=== PATIENT | female | born 1990 | race Caucasian/White ===

== ENCOUNTER 2018-08-21 15:07 | Inpatient (IN) | payer OTHER, SELFPAY ==
[2018-08-21] MEDS ORDERED: ONDANSETRON 4 MG/2 ML VIAL ONE (15:44)
[2018-08-21] MEDS ORDERED: NA CHLORIDE 0.9% 1,000 ML ONE ×2 (15:44→16:45)
--- NOTE | 2018-08-21 15:48 | RAD REPORT ---
EXAM DESCRIPTION: US - Renal Ultrasound-Complete - 08/21/2018 3:43 pm CLINICAL HISTORY: . Urinary tract infection COMPARISON: None. FINDINGS: The right kidney measures 11 cm with a normal echotexture. The left kidney measures 11 cm with a normal echotexture. Hydronephrosis is not seen. IMPRESSION: Unremarkable renal ultrasound.
[2018-08-21 15:56] LABS: Urine Blood 2+ (NEG); Urine Glucose NEGATIVE (NEG); Urine Protein 2+ (NEG); Urine pH 5.5 (5.0-7.0)
[2018-08-21 16:05] LABS: Absolute Monocytes 2.8 K/uL (0.1-1.3); Absolute Neutrophil 19.8 K/uL (1.8-8.0); Basophils % 0.2 % (0-1.3); Eosinophils % 0.1 % (0-4.4); Hematocrit 37.3 % (36.0-45.0); Lymphocytes % 4.3 % (15.3-44.8); MCH 30.9 pg (27.0-35.0); MCV 89.5 fL (80-100); MPV 9.9 fL (7.6-11.3); Monocytes % 11.9 % (3.3-12.3); RBC Red Blood Cell Count 4.17 M/uL (3.86-4.86)
[2018-08-21 16:06] LABS: Urine Bacteria 20-50 /HPF (<20)
[2018-08-21 16:07] LABS: Urine Culture Reflex Order NOT NEEDED
[2018-08-21 16:42] LABS: Potassium 3.5 mmol/L (3.5-5.1)
[2018-08-21] MEDS ORDERED: CEFTRIAXONE/SWI 1gm 1 GM/10 ML SYR ONE (16:45)
[2018-08-21] MEDS ORDERED: ACETAMINOPHEN 500 MG TAB ONE (16:57)
--- NOTE | 2018-08-21 17:16 | RAD REPORT ---
EXAM DESCRIPTION: CT - Abdomen Pelvis W Contrast - 08/21/2018 5:04 pm CLINICAL HISTORY: Abdominal pain, flank pain, fever COMPARISON: None. TECHNIQUE: Biphasic, helical CT imaging of the abdomen and pelvis was performed following 100 ml non -ionic IV contrast. No oral contrast administered. All CT scans are performed using dose optimization technique as appropriate and may include automated exposure control or mA/KV adjustment according to patient size. FINDINGS: No suspicious findings in the lung bases. The liver, spleen, and pancreas show no suspicious findings. Gallbladder and biliary tree are also wi thout suspicious finding. Heterogeneous diminished attenuation seen throughout much of the right kidney in a pattern typical fo r pyelonephritis. No abscess or emergent complicating factor. A small 10 mm cyst is present medial ri ght kidney. A 2.3 cm cyst is present upper pole left kidney. No left-sided pyelonephritis. Mild dilat ation of the proximal right collecting system. Wall of the ureter is slightly thickened and shaggy. U rinary bladder is fully contracted limiting assessment of any cystitis component. The 2.5 centimeter right ovarian cyst is present. Small follicles or cysts seen in the left ovary. No suspicious uterine finding. No dilated bowel loops or bowel wall thickening. Appendix is normal. No free air, free fluid or infla mmatory stranding. No hernia, mass or bulky lymphadenopathy. The urinary bladder is without signific ant finding. No adrenal abnormality. No suspicious bony findings. IMPRESSION: Moderate right-sided pyelonephritis without abscess or surgically emergent component. Suspected right-side proximal ureteritis. Urinary bladder is too contracted to allow assessment of a ny concurrent cystitis.
[2018-08-21 17:29] LABS: Blood Morphology Comment NOT SEEN (NOT SEEN); Platelet Estimate ADEQ
[2018-08-21 17:31] LABS: Urine White Blood Cell Casts OK
--- NOTE | 2018-08-21 17:42 | EDPHYS ---
Physician Documentation [facility] Name: Elizabeth Blackwell Age: 28 yrs Sex: Female : 1990 Arrival Date: 08/21/2018 Time: 15:12 Bed 18 Private MD: David Lawrence ED Physician Vic Garcia HPI: 08/21 15:40 This 28 yrs old Female presents to ER via Ambulatory with complaints of kb Vomiting, Fever. 15:40 The patient presents to the emergency department with vomiting. Onset: The kb symptoms/episode began/occurred 4 day(s) ago. Possible causes: unknown. The symptoms are aggravated by nothing. The symptoms are alleviated by nothing. Associated signs and symptoms: Pertinent positives: fever, nausea, vomiting, flank pain. Severity of symptoms: At their worst the symptoms were moderate in the emergency department the symptoms are unchanged. The patient has not experienced similar symptoms in the past. Pt reports she started having fever and back pain on Saturday. Went to urgent care on Saturday and was prescribed Bactrim for UTI and promethazine for nausea, but has been unable to keep it down. Reports unable to tolerate anything by mouth since Saturday due to vomiting. Reports bilateral flank pain, worse on right, fever (subjective) and vomiting. . 15:40 The patient has been recently seen at an urgent care, this week, for similar kb complaints, labs were performed, was given a prescription for antibiotics, was given a prescription for an antiemetic. 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 - Social history:: Smoking status: Patient/guardian denies using tobacco. - Ebola Screening: : Patient denies exposure to infectious person Patient denies travel to an Ebola-affected area in the 21 days before illness onset. ROS: 15:39 Cardiovascular: Negative for chest pain, palpitations, and edema, Respiratory: Negative kb for shortness of breath, cough, wheezing, and pleuritic chest pain, MS/Extremity: Negative for injury and deformity, Skin: Negative for injury, rash, and discoloration, Neuro: Negative for headache, weakness, numbness, tingling, and seizure. 15:39 Constitutional: Positive for fever, Negative for body aches, chills, fatigue, malaise, poor PO intake, weight loss. 15:39 Abdomen/GI: Positive for nausea and vomiting, Negative for abdominal pain, diarrhea, constipation, abdominal cramps. 15:39 : Positive for flank pain. Exam: 15:39 Constitutional: This is a well developed, well nourished patient who is awake, alert, kb and in no acute distress. Head/Face: Normocephalic, atraumatic. Chest/axilla: Normal chest wall appearance and motion. Nontender with no deformity. No lesions are appreciated. Cardiovascular: Regular rate and rhythm with a normal S1 and S2. No gallops, murmurs, or rubs. Normal PMI, no JVD. No pulse deficits. Respiratory: Lungs have equal breath sounds bilaterally, clear to auscultation and percussion. No rales, rhonchi or wheezes noted. No increased work of breathing, no retractions or nasal flaring. Abdomen/GI: Soft, non-tender, with normal bowel sounds. No distension or tympany. No guarding or rebound. No evidence of tenderness throughout. Skin: Warm, dry with normal turgor. Normal color with no rashes, no lesions, and no evidence of cellulitis. MS/ Extremity: Pulses equal, no cyanosis. Neurovascular intact. Full, normal range of motion. Neuro: Awake and alert, GCS 15, oriented to person, place, time, and situation. Cranial nerves II-XII grossly intact. Motor strength 5/5 in all extremities. Sensory grossly intact. Cerebellar exam normal. Normal gait. 15:39 Back: CVA tenderness, that is mild, is noted bilaterally. Vital Signs: 15:32 BP 177 / 85; Pulse 120; Resp 17; Temp 100.1(O); Pulse Ox 98% ; Weight 97.52 kg; Height ss 5 ft. 7 in. (170.18 cm); Pain 10/10; 16:36 BP 117 / 56; Pulse 94; Resp 18; Pulse Ox 99% on R/A; mg2 17:40 BP 129 / 87; Resp 18; Pulse Ox 100% on R/A; mg2 18:17 BP 127 / 86; Pulse 90; Resp 18; Temp 99.4(O); Pulse Ox 100% ; mg2 19:07 BP 122 / 72; Pulse 80; Resp 18 S; Temp 99.4(O); Pulse Ox 98% on R/A; cc3 20:00 BP 119 / 75; Pulse 82; Resp 19 S; Pulse Ox 99% on R/A; cc3 15:32 Body Mass Index 33.67 (97.52 kg, 170.18 cm) ss MDM: 15:19 Patient medically screened. kb 15:40 Data reviewed: vital signs, nurses notes. Data interpreted: Pulse oximetry: on room air kb is 98 %. Interpretation: normal. 17:40 Counseling: I had a detailed discussion with the patient and/or guardian regarding: the kb historical points, exam findings, and any diagnostic results supporting the discharge/admit diagnosis, lab results, radiology results, the need for further work-up and treatment in the hospital. Physician consultation: Sohan Spann DO was contacted at 17:40, regarding admission, to the medical/surgical unit. patient's condition, and will see patient in ED, in the emergency department to see patient at 17:40. 08/21 15:28 Order name: CBC with Diff; Complete Time: 17:32 kb 08/21 15:28 Order name: Basic Metabolic Panel; Complete Time: 16:49 kb 08/21 15:28 Order name: Urine Microscopic Only; Complete Time: 16:07 kb 08/21 15:33 Order name: Urine Dipstick--Ancillary (enter results); Complete Time: 15:57 mt 08/21 15:33 Order name: Urine --Ancillary (enter results); Complete Time: 15:57 mt 08/21 16:16 Order name: CBC Smear Scan; Complete Time: 17:32 EDMS 08/21 15:28 Order name: US Rp Exam Complete; Complete Time: 15:52 kb 08/21 16:25 Order name: CT Abd/Pelvis - W/Contrast; Complete Time: 17:22 kb 08/21 17:30 Order name: Blood Culture Adult (2) kb 08/21 17:30 Order name: Lactate kb 08/21 17:30 Order name: Procalcitonin kb 08/21 20:37 Order name: Blood Culture EDMS 08/21 15:28 Order name: Urine Test (obtain specimen); Complete Time: 15:29 kb 08/21 15:28 Order name: Urine Dipstick-Ancillary (obtain specimen); Complete Time: 15:29 kb Administered Medications: 15:55 Drug: Zofran 4 mg Route: IVP; Site: right antecubital; mg2 19:00 Follow up: Response: No adverse reaction; Nausea is decreased cc3 15:56 Drug: NS 0.9% 1000 ml Route: IV; Rate: 1000 ml; Site: right antecubital; mg2 19:00 Follow up: Response: No adverse reaction; IV Status: Completed infusion; IV Intake: cc3 1000ml 16:40 Drug: Rocephin 1 grams Route: IV; Rate: calculated rate; Site: right antecubital; mg2 19:00 Follow up: Response: No adverse reaction; IV Status: Completed infusion cc3 16:53 Drug: Tylenol 1000 mg Route: PO; mg2 19:05 Follow up: Response: No adverse reaction; Temperature is decreased cc3 17:21 Drug: NS 0.9% 1000 ml Route: IV; Rate: 1000 ml; Site: right antecubital; mg2 19:00 Follow up: Response: No adverse reaction; IV Status: Completed infusion; IV Intake: cc3 1000ml Disposition: 08/21/18 17:41 Hospitalization ordered by Sohan Spann for Observation. Preliminary diagnosis is Acute tubulo-interstitial nephritis - failed outpatient therapy. - Bed requested for Telemetry/MedSurg (observation). - Status is Observation. cc3 - Condition is Stable. - Problem is new. - Symptoms are unchanged. UTI on Admission? Yes Addendum: 08/23/2018 19:03 Co-signature as Attending Physician, Vic Garcia MD. r n Signatures: Dispatcher [employer] [facility] Miracle Marquez, CASE AIDE-C CASE AIDE-Kasia Torres RN RN kl Nieto, Roman, MD MD rn Smirch, Shelby, RN RN Raji Nichole RN RN [facility] Vianney Freire cc3 Corrections: (The following items were deleted from the chart) 08/21 19:38 17:41 Hospitalization Ordered by Sohan Spann DO for Observation. Preliminary kl diagnosis is Acute tubulo-interstitial nephritis - failed outpatient therapy. Bed requested for Telemetry/MedSurg (observation). Status is Observation. Condition is Stable. Problem is new. Symptoms are unchanged. UTI on Admission? Yes. kb 19:43 19:38 08/21/2018 17:41 Hospitalization Ordered by Sohan Spann DO for Observation. kl Preliminary diagnosis is Acute tubulo-interstitial nephritis - failed outpatient therapy. Bed requested for Telemetry/MedSurg (observation). Status is Observation. Condition is Stable. Problem is new. Symptoms are unchanged. UTI on Admission? Yes. 20:48 19:43 08/21/2018 17:41 Hospitalization Ordered by Sohan Spann DO for Observation. cc3 Preliminary diagnosis is Acute tubulo-interstitial nephritis - failed outpatient therapy. Bed requested for Telemetry/MedSurg (observation). Status is Observation. Condition is Stable. Problem is new. Symptoms are unchanged. UTI on Admission? Yes. jose
--- NOTE | 2018-08-21 17:42 | ER ---
Nurse's Notes [facility] Name: Elizabeth Blackwell Age: 28 yrs Sex: Female : 1990 Arrival Date: 08/21/2018 Time: 15:12 Bed 18 Private MD: David Lawrence Diagnosis: Acute tubulo-interstitial nephritis-failed outpatient therapy Presentation: 08/21 15:27 Presenting complaint: Patient states: N/V, fever and back pain that began 4 days ago. ss Seen in urgent care and given prescriptions for promethazine and Bactrim. Patient reports that symptoms have not improved and she has not been able to hold down her medications. Transition of care: patient was not received from another setting of care. Onset of symptoms was August 18, 2018. Risk Assessment: Do you want to hurt yourself or someone else? Patient reports no desire to harm self or others. Initial Sepsis Screen: Does the patient meet any 2 criteria? HR > 90 bpm. Does the patient have a suspected source of infection? Yes: Dysuria/Frequency/Urgency/UTI. Care prior to arrival: None. 15:27 Method Of Arrival: Ambulatory ss 15:27 Acuity: ARAM 3 ss Triage Assessment: 19:15 General: Appears in no apparent distress. comfortable. GI: Reports nausea, vomiting, cc3 since 4 days. 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 - Social history:: Smoking status: Patient/guardian denies using tobacco. - Ebola Screening: : Patient denies exposure to infectious person Patient denies travel to an Ebola-affected area in the 21 days before illness onset. Screenin:21 Abuse screen: Denies threats or abuse. Denies injuries from another. Nutritional mg2 screening: No deficits noted. Tuberculosis screening: No symptoms or risk factors identified. Fall Risk IV access (20 points). Assessment: 16:16 General: Appears in no apparent distress. comfortable, Behavior is calm, cooperative. mg2 Pain: Complains of pain in right flank Pain does not radiate. Pain currently is 8 out of 10 on a pain scale. Quality of pain is described as aching, Pain began gradually, Is intermittent. Neuro: Level of Consciousness is awake, alert, obeys commands, Oriented to person, place, time, situation. Cardiovascular: Capillary refill < 3 seconds Patient's skin is warm and dry. Respiratory: Airway is patent Respiratory effort is even, unlabored, Respiratory pattern is regular, symmetrical. GI: Abdomen is flat. : Urine is cloudy. EENT: No signs and/or symptoms were reported regarding the EENT system. Derm: Skin is intact, is healthy with good turgor, Skin is pink, warm \T\ dry. normal. Musculoskeletal: No signs and/or symptoms reported regarding the musculoskeletal system. 16:36 Reassessment: Patient appears in no apparent distress at this time. Patient and/or mg2 family updated on plan of care and expected duration. Pain level reassessed. Patient is alert, oriented x 3, equal unlabored respirations, skin warm/dry/pink. 19:10 Reassessment: Patient appears in no apparent distress at this time. Patient and/or cc3 family updated on plan of care and expected duration. Pain level reassessed. Patient is alert, oriented x 3, equal unlabored respirations, skin warm/dry/pink. Received from LINN Alegria as a case of pyelonephritis for admission waiting for bed availability. Patient with IV cannula gauge 20 at the right ACV saline locked. 20:00 Reassessment: Patient appears in no apparent distress at this time. Patient and/or cc3 family updated on plan of care and expected duration. Pain level reassessed. Patient is alert, oriented x 3, equal unlabored respirations, skin warm/dry/pink. Room available in 424, called report to LINN Lopez. 20:25 Reassessment: Patient left ER vitally stable by wheelchair for admission escorted by ED cc3 [facility]. Vital Signs: 15:32 BP 177 / 85; Pulse 120; Resp 17; Temp 100.1(O); Pulse Ox 98% ; Weight 97.52 kg; Height ss 5 ft. 7 in. (170.18 cm); Pain 10/10; 16:36 BP 117 / 56; Pulse 94; Resp 18; Pulse Ox 99% on R/A; mg2 17:40 BP 129 / 87; Resp 18; Pulse Ox 100% on R/A; mg2 18:17 BP 127 / 86; Pulse 90; Resp 18; Temp 99.4(O); Pulse Ox 100% ; mg2 19:07 BP 122 / 72; Pulse 80; Resp 18 S; Temp 99.4(O); Pulse Ox 98% on R/A; cc3 20:00 BP 119 / 75; Pulse 82; Resp 19 S; Pulse Ox 99% on R/A; cc3 15:32 Body Mass Index 33.67 (97.52 kg, 170.18 cm) ED Course: 15:12 Patient arrived in ED. mr 15:13 David Lawrence MD is Private Physician. mr 15:19 David Mccarthy PA is PHCP. jr8 15:19 Vic Garcia MD is Attending Physician. jr8 15:19 PHCP role handed off by David Mccarthy PA kb 15:19 Miracle Marquez FNP-C is PHCP. kb 15:19 Raji Nichole, RN is Primary Nurse. mg2 15:30 Triage completed. ss 15:32 Arm band placed on right wrist. ss 15:44 US Rp Exam Complete In Process Unspecified. EDMS 16:16 No provider procedures requiring assistance completed. Inserted saline lock: 20 gauge mg2 in right antecubital area, using aseptic technique. Blood collected. 16:33 Radiology exam delayed due to lab results not completed at this time. (BUN/Creatinine). sj 16:[address] sj 16:59 CT completed. Patient tolerated procedure well. Patient moved back from CT. sj 17:04 CT Abd/Pelvis - W/Contrast In Process Unspecified. EDMS 17:41 Sohan Spann DO is Hospitalizing Provider. kb 19:15 Patient has correct armband on for positive identification. Bed in low position. Call cc3 light in reach. Pulse ox on. NIBP on. 20:00 Patient admitted, IV remains in place. cc3 Administered Medications: 15:55 Drug: Zofran 4 mg Route: IVP; Site: right antecubital; mg2 19:00 Follow up: Response: No adverse reaction; Nausea is decreased cc3 15:56 Drug: NS 0.9% 1000 ml Route: IV; Rate: 1000 ml; Site: right antecubital; mg2 19:00 Follow up: Response: No adverse reaction; IV Status: Completed infusion; IV Intake: cc3 1000ml 16:40 Drug: Rocephin 1 grams Route: IV; Rate: calculated rate; Site: right antecubital; mg2 19:00 Follow up: Response: No adverse reaction; IV Status: Completed infusion cc3 16:53 Drug: Tylenol 1000 mg Route: PO; mg2 19:05 Follow up: Response: No adverse reaction; Temperature is decreased cc3 17:21 Drug: NS 0.9% 1000 ml Route: IV; Rate: 1000 ml; Site: right antecubital; mg2 19:00 Follow up: Response: No adverse reaction; IV Status: Completed infusion; IV Intake: cc3 1000ml Intake: 19:00 IV: 1000ml; Total: 1000ml. cc3 19:00 IV: 1000ml; Total: 2000ml. cc3 Outcome: 17:41 Decision to Hospitalize by Provider. kb 20:00 Admitted to Tele accompanied by tech, via wheelchair, room 424, with chart, Report cc3 called to LINN Lopez 20:00 Condition: stable 20:00 Instructed on the need for admit. 20:48 Patient left the ED. cc3 Signatures: Dispatcher [employer] EDMS Miracle Marquez, BONDING MACHINE OPERATOR-C BONDING MACHINE OPERATOR-Ckb Allyn Temple Susan sj Smirch, Shelby, RN RN David Mccarthy PA PA jr8 Gardose, Michele, RN RN [facility] [place] [place] Vianney Freire cc3
[2018-08-21] MEDS ORDERED: IBUPROFEN 100 MG/5 ML UCUP PO PRN (17:50)
[2018-08-21] MEDS: NA CHLORIDE 0.9% 1,000 ML IV SCH ×2 (18:00→22:08)
--- NOTE | 2018-08-21 18:18 | P.HP ---
Certification for Inpatient Patient admitted to: Inpatient With expected LOS: >2 Midnights Patient will require the following post-hospital care: None Practitioner: I am a practitioner with admitting privileges, knowledge of patient current condition, hospital course, and medical plan of care. Services: Services provided to patient in accordance with Admission requirements found in Title 42 Section 412.3 of the Code of Federal Regulations Patient History Date of Service: 08/21/18 Primary Care Provider: Dr. Lawrence Reason for admission: Failed outpatient therapy History of Present Illness: 28-year-old female presented to the hospital after failed therapy for UTI. Patient reported on Saturday having back pain and chills. The following day she went a urgent care was found to have a UTI. She was sent home with Bactrim and Phenergan. Patient was having nausea, vomiting, chills and fever. She also reported some lower abdominal pain and back pain along with right flank pain. The nausea persisted. She came to the ER for further evaluation. In the ER she was evaluated. White count elevated at 23.7. Urinalysis showed bacteria. Renal ultrasound unremarkable. CT scan showed moderate right pyelonephritis with proximal ureteritis. Due to failed outpatient therapy the patient was admitted for treatment. When I saw the patient ER, pain and nausea had improved. Patient has no past medical problems. Patient with history of 1 sexual partner. She has had gonorrhea and herpes in the distant past. She is currently single and has had 2 prior C-sections. She recently started control medication about a week ago. She had to stop this due to her infection. She admits drinking alcohol regularly. Patient reports history of Pap smear within the last 3 months which was unremarkable. Allergies No Known Allergies Allergy (Verified 11/26/13 05:58) Home medications list reviewed: Yes Home Medications: Pnv Comb.[id number]/Iron Bisgly/FA [ Capsule] 1 each PO DAILY 11/26/13 - Past Medical/Surgical History Diabetic: No Past Medical History: Patient denies medical history -: History of gonorrhea and general herpes -: x2 Psychosocial/ Personal History: The patient is single. She has 2 children. 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 - Family History Family History: Reviewed- Non-Contributory - Social History Smoking Status: Never smoker Alcohol use: Yes CD- Drugs: No Caffeine use: Yes Place of Residence: Home Review of Systems General: Fever, Chills, Weakness, As per HPI Eyes: Unremarkable ENT: Unremarkable Respiratory: Unremarkable Cardiovascular: Unremarkable Gastrointestinal: Nausea, Vomiting, Abdominal Pain, As per HPI Genitourinary: Dysuria, Frequency, As per HPI Musculoskeletal: Back Pain, As per HPI Integumentary: Unremarkable Neurological: Unremarkable Lymphatics: Unremarkable Physical Examination - Physical Exam General: Alert, In no apparent distress, Oriented x3, Cooperative HEENT: Atraumatic, Normocephalic, PERRLA, Other (Dry mucous membranes) Neck: Supple, No Thyromegaly Respiratory: Clear to auscultation bilaterally, Normal air movement Cardiovascular: Normal pulses, Regular rate/rhythm Gastrointestinal: Normal bowel sounds, Soft and benign, Non-distended, No masses , No rebound, No guarding, Tenderness (Mild tenderness to the right flank) Musculoskeletal: No erythema, No tenderness, No warmth Integumentary: No tenderness/swelling, No erythema, No warmth, No cyanosis Neurological: Normal speech, Normal strength at 5/5 x4 extr, Normal tone, Normal affect Lymphatics: No axilla or inguinal lymphadenopathy - Studies Laboratory Data (last 24 hrs) 08/21/18 16:22: Sodium 135 L, Potassium 3.5, BUN 9, Creatinine 0.90, Glucose 107 H 08/21/18 15:35: WBC 23.7 H*, Hgb 12.9, Hct 37.3, Plt Count 309 Assessment and Plan - Plan Impression: Right flank pain secondary to right pyelonephritis and proximal ureteritis with noted failed outpatient therapy for UTI Nausea and vomiting and fever secondary to pyelonephritis Hyponatremia likely from dehydration Alcohol use Plan: Right flank pain secondary to right pyelonephritis and proximal ureteritis with noted failed outpatient therapy for UTI: Blood and urine culture obtained. Will continue with Rocephin IV. Will provide medication for pain, fever and nausea and vomiting. Will continue IV fluids. Will evaluate for gonorrhea and chlamydia due to her past distant sexual history. Will reassess tomorrow. Will hold her control medication as this was recently started but stopped earlier in the week due to her UTI. Nausea and vomiting and fever secondary to pyelonephritis: Will provide medication for nausea and vomiting. Will provide medication for fever if required. Continue with IV fluids. Hyponatremia likely from dehydration: Continue with IV fluids. Will monitor and adjust appropriately. Alcohol use: Patient with history of alcohol use on a regular basis. Will provide alcohol cessation education. Discharge Plan: Home Plan to discharge in: 72 Hours - Advance Directives Does patient have a Living Will: No Does patient have a Durable POA for Healthcare: No - Code Status/Comfort Care Code Status Assessed: Yes (Patient full code.) Time Spent Managing Pts Care (In Minutes): 55
[2018-08-21] MEDS: ENOXAPARIN 40 MG/0.4 ML SQ SCH (21:58)
[2018-08-21] MEDS: HYDROCODONE/APAP 7.5/325 MG TAB PO PRN (21:58)
[2018-08-21] MEDS: ONDANSETRON 4 MG/2 ML VIAL IV PRN (22:05)
[2018-08-21] MEDS: ACETAMINOPHEN 500 MG TAB PO PRN (22:35)
[2018-08-22 02:59] VITALS: BMI 33.6
[2018-08-22] MEDS: HYDROCODONE/APAP 7.5/325 MG TAB PO PRN ×4 (03:44→22:17)
[2018-08-22 05:21] LABS: Absolute Lymphocytes (CBC) 1.4 K/uL (0.7-4.9); Absolute Monocytes 2.3 K/uL (0.1-1.3); Absolute Neutrophil 12.2 K/uL (1.8-8.0); Basophils % 0.2 % (0-1.3); Eosinophils % 0.1 % (0-4.4); Hematocrit 32.5 % (36.0-45.0); Lymphocytes % 8.6 % (15.3-44.8); MCH 30.6 pg (27.0-35.0); MCV 90.1 fL (80-100); MPV 9.5 fL (7.6-11.3); Monocytes % 14.3 % (3.3-12.3); RBC Red Blood Cell Count 3.61 M/uL (3.86-4.86)
[2018-08-22 05:35] LABS: Magnesium 2.5 mg/dL (1.8-2.4); Potassium 3.8 mmol/L (3.5-5.1)
[2018-08-22] MEDS: NA CHLORIDE 0.9% 1,000 ML IV SCH ×3 (06:26→18:51)
[2018-08-22] MEDS: TRAMADOL HCL 50 MG TAB PO PRN ×3 (07:52→20:27)
[2018-08-22] MEDS ORDERED: INFLUENZA VACCINE (for 3y+) 0.5 ML DOSE IMVAC ONE (08:00)
[2018-08-22] MEDS: ONDANSETRON 4 MG/2 ML VIAL IV PRN ×3 (08:56→20:27)
[2018-08-22] MEDS: ENOXAPARIN 40 MG/0.4 ML SQ SCH (08:58)
[2018-08-22] MEDS: CEFTRIAXONE/SWI 1gm 1 GM/10 ML SYR IVP SCH (08:59)
[2018-08-22] MEDS: ACETAMINOPHEN 500 MG TAB PO PRN (09:08)
--- NOTE | 2018-08-22 09:34 | P.PN ---
Subjective Date of Service: 08/22/18 Primary Care Provider: Dr. Lawrence Chief Complaint: Failed outpatient therapy Subjective: Improving (Less pain noted. No nausea vomiting.) Physical Examination - Vital Signs Temperature: 98.2 F Blood Pressure: 122/58 Pulse: 89 Respirations: 18 Pulse Ox (%): 100 - Physical Exam General: Alert, In no apparent distress, Oriented x3, Cooperative HEENT: Atraumatic, Mucous membr. moist/pink Neck: Supple Respiratory: Clear to auscultation bilaterally, Normal air movement Cardiovascular: Normal pulses, Regular rate/rhythm Gastrointestinal: Normal bowel sounds, Soft and benign, Non-distended, No masses , No rebound, No guarding, Tenderness (Significantly less pain to the flank region.) Musculoskeletal: No erythema, No tenderness, No warmth Integumentary: No tenderness/swelling, No erythema, No warmth, No cyanosis Neurological: Normal speech, Normal strength at 5/5 x4 extr, Normal tone, Normal affect - Studies Laboratory Data (last 24 hrs) 08/21/18 16:22: Sodium 135 L, Potassium 3.5, BUN 9, Creatinine 0.90, Glucose 107 H 08/21/18 15:35: WBC 23.7 H*, Hgb 12.9, Hct 37.3, Plt Count 309 Medications List Reviewed: Yes Assessment & Plan Discharge Plan: Home Plan to discharge in: 24 Hours Physician Review Additional Text: Impression: Right flank pain secondary to right pyelonephritis and proximal ureteritis with noted failed outpatient therapy for UTI Nausea and vomiting and fever secondary to pyelonephritis Hyponatremia likely from dehydration Alcohol use Anemia Obesity, BMI 33.7 Plan: Right flank pain secondary to right pyelonephritis and proximal ureteritis with noted failed outpatient therapy for UTI: Blood and urine culture obtained, awaiting results. Will continue with Rocephin IV. Patient improving. Continue with medication for pain and nausea as needed. Continue IV fluids. Gonorrhea and chlamydia also obtained. Encourage ambulation. Anticipate discharge as early as tomorrow. Nausea and vomiting and fever secondary to pyelonephritis: This has improved. Will provide medication for nausea and vomiting. Will provide medication for fever if required. Continue with IV fluids. Hyponatremia likely from dehydration: This has improved. Continue with IV fluids. Will monitor and adjust appropriately. Alcohol use: Patient with history of alcohol use on a regular basis. Will provide alcohol cessation education. Anemia: Likely delusional. Will monitor closely. Obesity, BMI 33.7: Will address lifestyle modification education Time Spent Managing Pts Care (In Minutes): 55
[2018-08-22 20:31] VITALS: O2SAT 99
[2018-08-23] MEDS: NA CHLORIDE 0.9% 1,000 ML IV SCH (04:15)
[2018-08-23] MEDS: HYDROCODONE/APAP 7.5/325 MG TAB PO PRN ×2 (04:36→12:21)
[2018-08-23] MEDS: ONDANSETRON 4 MG/2 ML VIAL IV PRN (04:51)
[2018-08-23 06:02] LABS: Absolute Lymphocytes (CBC) 1.6 K/uL (0.7-4.9); Absolute Monocytes 1.3 K/uL (0.1-1.3); Absolute Neutrophil 6.2 K/uL (1.8-8.0); Basophils % 0.5 % (0-1.3); Eosinophils % 1.1 % (0-4.4); Hematocrit 30.1 % (36.0-45.0); Lymphocytes % 17.3 % (15.3-44.8); MCH 31.4 pg (27.0-35.0); MCV 90.6 fL (80-100); MPV 9.4 fL (7.6-11.3); Monocytes % 13.6 % (3.3-12.3); RBC Red Blood Cell Count 3.32 M/uL (3.86-4.86)
[2018-08-23 06:15] LABS: BUN Blood Urea Nitrogen 6 mg/dL (7-18); Bicarbonate 26 mmol/L (21-32); Glucose Level 87 mg/dL (74-106); Potassium 3.7 mmol/L (3.5-5.1); Sodium Level 137 mmol/L (136-145)
[2018-08-23] MEDS: CEFTRIAXONE/SWI 1gm 1 GM/10 ML SYR IVP SCH (09:52)
[2018-08-23] MEDS: ENOXAPARIN 40 MG/0.4 ML SQ SCH (09:52)
[2018-08-23] MEDS: TRAMADOL HCL 50 MG TAB PO PRN (09:53)
--- NOTE | 2018-08-23 10:43 | P.DS ---
Admission Date: 08/21/18 Discharge Date: 08/23/18 Primary Care Provider: Dr. Lawrence Disposition: ROUTINE DISCHARGE Discharge Condition: GOOD Reason for Admission: Failed outpatient therapy Procedures: CT scan: COMPARISON: None. TECHNIQUE: Biphasic, helical CT imaging of the abdomen and pelvis was performed following 100 ml non-ionic IV contrast. No oral contrast administered. All CT scans are performed using dose optimization technique as appropriate and may include automated exposure control or mA/KV adjustment according to patient size. FINDINGS: No suspicious findings in the lung bases. The liver, spleen, and pancreas show no suspicious findings. Gallbladder and biliary tree are also without suspicious finding. Heterogeneous diminished attenuation seen throughout much of the right kidney in a pattern typical for pyelonephritis. No abscess or emergent complicating factor. A small 10 mm cyst is present medial right kidney. A 2.3 cm cyst is present upper pole left kidney. No left-sided pyelonephritis. Mild dilatation of the proximal right collecting system. Wall of the ureter is slightly thickened and shaggy. Urinary bladder is fully contracted limiting assessment of any cystitis component. The 2.5 centimeter right ovarian cyst is present. Small follicles or cysts seen in the left ovary. No suspicious uterine finding. No dilated bowel loops or bowel wall thickening. Appendix is normal. No free air , free fluid or inflammatory stranding. No hernia, mass or bulky lymphadenopathy. The urinary bladder is without significant finding. No adrenal abnormality. No suspicious bony findings. IMPRESSION: Moderate right-sided pyelonephritis without abscess or surgically emergent component. Suspected right-side proximal ureteritis. Urinary bladder is too contracted to allow assessment of any concurrent cystitis. Renal ultrasound: CLINICAL HISTORY: . Urinary tract infection COMPARISON: None. FINDINGS: The right kidney measures 11 cm with a normal echotexture. The left kidney measures 11 cm with a normal echotexture. Hydronephrosis is not seen. IMPRESSION: Unremarkable renal ultrasound. Impression: Right flank pain secondary to right pyelonephritis and proximal ureteritis with noted failed outpatient therapy for UTI Nausea and vomiting and fever secondary to pyelonephritis Hyponatremia likely from dehydration 2.5 cm right ovarian cyst Alcohol use Anemia Obesity, BMI 33.7 Brief History of Present Illness: 28-year-old female presented to the hospital after failed therapy for UTI. Patient reported on Saturday having back pain and chills. The following day she went a urgent care was found to have a UTI. She was sent home with Bactrim and Phenergan. Patient was having nausea, vomiting, chills and fever. She also reported some lower abdominal pain and back pain along with right flank pain. The nausea persisted. She came to the ER for further evaluation. In the ER she was evaluated. White count elevated at 23.7. Urinalysis showed bacteria. Renal ultrasound unremarkable. CT scan showed moderate right pyelonephritis with proximal ureteritis. Due to failed outpatient therapy the patient was admitted for treatment. When I saw the patient ER, pain and nausea had improved. Patient has no past medical problems. Patient with history of 1 sexual partner. She has had gonorrhea and herpes in the distant past. She is currently single and has had 2 prior C-sections. She recently started control medication about a week ago. She had to stop this due to her infection. She admits drinking alcohol regularly. Patient reports history of Pap smear within the last 3 months which was unremarkable. Hospital Course: Patient presented with right flank pain secondary to right pyelonephritis and proximal ureteritis with noted failed outpatient therapy for UTI. Patient respond to IV antibiotic therapy. Patient received IV fluids. Her condition improved. White count back to baseline. At discharge no nausea, vomiting or abdominal pain noted. Urine culture showed no growth of bacteria. Blood cultures negative. Repeat urine culture prior to discharge obtain. At discharge patient will need continue with Levaquin 500 mg one pill daily for 10 days. Patient will be provided a limited supply of Tylenol #3 1 pill 3 times a day as needed for severe pain. Patient may take ibuprofen 400 mg 1 pill twice daily as needed for pain. Recommendation is for the patient follow up with her PCP in 1 week to follow up this hospitalization. PCP will need to follow up most recent urine culture results. Recommendation for the patient to follow up with urology to establish care and further address. UTI prevention will be provided. Patient had nausea and vomiting with pyelonephritis. This has resolved. Patient will be provided Zofran 4 mg 1 pill 3 times a day as needed for nausea. Recommendation to decrease her alcohol use in the future. Alcohol cessation addressed in detail. Patient with mild anemia. This is likely dilutional in nature. Recommendation to recheck lab-CBC in 2-4 weeks to monitor her progress. Patient has a 2.5 cm right ovarian cyst. This can be followed up and monitored by gynecology as an outpatient. Vital Signs/Physical Exam: Temp Pulse Resp BP Pulse Ox 97.6 F 80 18 106/69 99 08/23/18 08:00 08/23/18 08:00 08/23/18 08:00 08/23/18 08:00 08/23/18 08:00 General: Alert, In no apparent distress, Oriented x3, Cooperative HEENT: Atraumatic, Mucous membr. moist/pink Neck: Supple Respiratory: Clear to auscultation bilaterally, Normal air movement Cardiovascular: Normal pulses, Regular rate/rhythm Gastrointestinal: Normal bowel sounds, Soft and benign, Non-distended, No tenderness, No masses, No rebound, No guarding Musculoskeletal: No erythema, No tenderness, No warmth Integumentary: No tenderness/swelling, No erythema, No warmth, No cyanosis Neurological: Normal speech, Normal strength at 5/5 x4 extr, Normal tone, Normal affect Laboratory Data at Discharge: WBC 9.2 K/uL (4.3-10.9) D 08/23/18 05:16 Hgb 10.4 g/dL (12.0-15.0) L 08/23/18 05:16 Hct 30.1 % (36.0-45.0) L 08/23/18 05:16 Plt Count 251 K/uL (152-406) 08/23/18 05:16 Sodium 137 mmol/L (136-145) 08/23/18 05:16 Potassium 3.7 mmol/L (3.5-5.1) 08/23/18 05:16 BUN 6 mg/dL (7-18) L 08/23/18 05:16 Creatinine 0.70 mg/dL (0.55-1.3) 08/23/18 05:16 Glucose 87 mg/dL (74-106) 08/23/18 05:16 Magnesium 2.0 mg/dL (1.8-2.4) D 08/23/18 05:16 Home Medications: Codeine/APAP [Tylenol W/Codeine #3 tab] 1 tab PO TID PRN #15 tab 08/23/18 Levofloxacin [Levaquin] 500 mg PO DAILY #10 tablet 08/23/18 Ondansetron HCl [Zofran] 4 mg PO TID PRN #15 tablet 08/23/18 New Medications: Codeine/APAP [Tylenol W/Codeine #3 tab] 1 tab PO TID PRN #15 tab PRN Reason: Pain Severe Levofloxacin [Levaquin] 500 mg PO DAILY #10 tablet Ondansetron HCl [Zofran] 4 mg PO TID PRN #15 tablet PRN Reason: Nausea / Vomiting Patient Discharge Instructions: 1. Patient will need to follow up with her PCP in 1 week to follow up this hospitalization. 2. Patient presented with right flank pain secondary to right pyelonephritis and proximal ureteritis with noted failed outpatient therapy for UTI. Patient respond to IV antibiotic therapy. Her condition improved. White count back to baseline. Urine culture showed no growth of bacteria. Blood cultures negative. Repeat urine culture prior to discharge obtained. At discharge patient will need continue with Levaquin 500 mg one pill daily for 10 days. Patient will be provided a limited supply of Tylenol #3 1 pill 3 times a day as needed for severe pain. Patient may take ibuprofen 400 mg 1 pill twice daily as needed for pain. Recommendation is for the patient follow up with her PCP in 1 week to follow up this hospitalization. PCP will need to follow up most recent urine culture results. Recommendation for the patient to follow up with urology to establish care and further address. UTI prevention will be provided. 3. Patient had nausea and vomiting with pyelonephritis. This has resolved. Patient will be provided Zofran 4 mg 1 pill 3 times a day as needed for nausea. 4. Recommendation to decrease her alcohol use in the future. Alcohol cessation education will be provided at discharge. 5. Patient with mild anemia. This is likely dilutional in nature. Recommendation to recheck lab-CBC in 2-4 weeks to monitor her progress. 6. Patient has a 2.5 cm right ovarian cyst. This can be followed up and monitored by gynecology as an outpatient. Diet: AHA Activity: Ad navdeep Time spent managing pt's care (in minutes): 55
[2018-08-23] MEDS ORDERED: INFLUENZA VACCINE (for 3y+) 0.5 ML DOSE IMVAC ONE (11:00)
[2018-08-23 12:46] LABS: Urine Appearance CLEAR; Urine Bilirubin NEGATIVE (NEG); Urine Blood 1+ (NEG); Urine Color YELLOW; Urine Glucose NEGATIVE (NEG); Urine Protein NEGATIVE (NEG); Urine Urobilinogen 0.2 mg/dL (0.2-1.0); Urine pH 6.5 (5.0-7.0)
[2018-08-23 12:53] VITALS: BP 131/76; TEMP 97.4
[2018-08-23 12:53] LABS: Urine Microscopic Reflex ORDER UMIC
[2018-08-23 12:57] LABS: Urine Bacteria <20 /HPF (<20); Urine Culture Reflex Order NOT NEEDED; Urine RBC <5 /HPF (NONE SEEN)
[2018-08-26 12:00] LABS: C.trachomatis RNA,TMA Not Detected (Not Detected)
== END 2018-08-23 13:21 | disposition home or self-care (01) | DRG 690 ==
LOC: ER 15:07 → ERHOLD 17:42 → 4TH 20:06
PROVIDERS: ADMIT Family Medicine; ATTEND Family Medicine
DX: N10 Acute pyelonephritis (principal); E87.1 Hypo-osmolality and hyponatremia; N28.89 Other specified disorders of kidney and ureter; E86.0 Dehydration; N83.201 Unspecified ovarian cyst, right side; D64.9 Anemia, unspecified; Z72.89 Other problems related to lifestyle; E66.9 Obesity, unspecified; Z68.33 Body mass index [BMI] 33.0-33.9, adult; Z87.898 Personal history of other specified conditions
CPT/HCPCS: 36415; 74177; 76770; 80048; 81003; 81015; 81025; 83605; 83735; 84145; 85025; 87040; 87086; 87088; 87490; 87590; 96361; 96365; 96366; 96375; 99285; G0008; J0696; J1650; J2405; J7030; Q2035; Q9967

== ENCOUNTER 2018-12-30 15:52 | Emergency (ER) | payer SELFPAY ==
--- OUTSIDE RECORDS SUMMARY | 2018-12-30 15:54 | XMS REPORT ---
:1990 Author Organization [employer] Care Team Providers Name Role Phone HAZEL KEVIN Provider Role Unavailable Allergies No Known Allergies Problems No Known Problems Medications No Known Medications Vital Signs Date/Time: Aug 23, 2017 Blood Pressure Diastolic 82 mm Hg Blood Pressure Systolic 116 mm Hg Temperature 98.6 F Results No Known Results Summary Purpose eClinical[employer] Submission
--- OUTSIDE RECORDS SUMMARY | 2018-12-30 15:54 | XMS REPORT | Continuity of Care Document ---
:1990 Author Organization Interface Problems Problem Status Onset Date Classification Date Comments Source Reported Medications Medication Details Route Status Patient Ordering Order Source Instructions Provider Date Allergies, Adverse Reactions, Alerts Substance Category Reaction Severity Reaction Status Date Comments Source type Reported Immunizations Immunization Date Given Site Status Last Updated Comments Source Results Order Results Value Reference Date Interpretation Comments Source Name Range Vital Signs Vital Sign Value Date Comments Source Diastolic (mm Hg) 82 08/23/2017 [id number] Systolic (mm Hg) 116 08/23/2017 [id number] Temperature Oral (F) 98.6 F 08/23/2017 [id number] Encounters Location Location Encounter Encounter Reason Attending ADM DC Status Source Details Type Number For Provider Date Date Visit Procedures Procedure Code Date Perfomer Comments Source
[2018-12-30] MEDS ORDERED: NA CHLORIDE 0.9% 1,000 ML ONE (16:40)
[2018-12-30] MEDS ORDERED: CEFTRIAXONE/SWI 1gm 1 GM/10 ML SYR ONE (16:57)
[2018-12-30 16:58] LABS: Absolute Lymphocytes (CBC) 2.3 K/uL (0.7-4.9); Absolute Monocytes 1.3 K/uL (0.1-1.3); Absolute Neutrophil 7.6 K/uL (1.8-8.0); Basophils % 0.7 % (0-1.3); Eosinophils % 1.1 % (0-4.4); Hematocrit 38.5 % (36.0-45.0); Lymphocytes % 20.4 % (15.3-44.8); MPV 9.3 fL (7.6-11.3); Monocytes % 11.2 % (3.3-12.3); RBC Red Blood Cell Count 4.31 M/uL (3.86-4.86)
[2018-12-30 17:31] LABS: BUN Blood Urea Nitrogen 14 mg/dL (7-18); Bicarbonate 23 mmol/L (21-32); Glucose Level 78 mg/dL (74-106); HCG, Quantitative 53505 mIU/mL (1-3); Potassium 3.7 mmol/L (3.5-5.1); Sodium Level 138 mmol/L (136-145)
[2018-12-30 17:52] LABS: Urine Bacteria >50 /HPF (<20); Urine Culture Reflex Order NOT NEEDED; Urine RBC <5 /HPF (NONE SEEN)
[2018-12-30 18:21] LABS: Urine Blood NEGATIVE (NEG); Urine Glucose NEGATIVE (NEG); Urine Protein TRACE (NEG); Urine Specific Gravity 1.025 (1.005-1.030); Urine pH 6.5 (5.0-7.0)
--- NOTE | 2018-12-30 18:44 | EDPHYS ---
Physician Documentation [facility] Name: Elizabeth Blackwell Age: 28 yrs Sex: Female : 1990 Arrival Date: 12/30/2018 Time: 15:55 Bed 20 Private MD: David Lawrence ED Physician Michael Weir HPI: 12/30 18:08 This 28 yrs old Female presents to ER via Ambulatory with complaints of 8wks velma , Dizziness. 18:08 The patient presents with dizziness, generalized weakness. Onset: The symptoms/episode velma began/occurred 2 day(s) ago. Context: occurred. Modifying factors: The symptoms are alleviated by nothing. Associated signs and symptoms: The patient has no apparent associated signs or symptoms. Severity of symptoms: At their worst the symptoms were mild. Patient's baseline: Neuro:. The patient has not experienced similar symptoms in the past. [employer]ING [employer]: 16:31 LMP 10/31/2018 pc1 Historical: - Allergies: 16:30 No Known Allergies; hj - Home Meds: 16:31 None [Active]; hj - PMHx: 16:30 UTI; hj - PSHx: 16:30 ; hj - Immunization history:: Adult Immunizations unknown. - Social history:: Smoking status: Patient/guardian denies using tobacco, Patient/guardian denies using alcohol, street drugs. - Ebola Screening: : Patient negative for fever greater than or equal to 101.5 degrees Fahrenheit, and additional compatible Ebola Virus Disease symptoms Patient denies exposure to infectious person Patient denies travel to an Ebola-affected area in the 21 days before illness onset No symptoms or risks identified at this time. - Family history:: not pertinent. ROS: 18:08 Constitutional: Negative for fever, chills, and weight loss, Eyes: Negative for injury, velma pain, redness, and discharge, ENT: Negative for injury, pain, and discharge, Neck: Negative for injury, pain, and swelling, Cardiovascular: Negative for chest pain, palpitations, and edema, Respiratory: Negative for shortness of breath, cough, wheezing, and pleuritic chest pain, Abdomen/GI: Negative for abdominal pain, nausea, vomiting, diarrhea, and constipation, Back: Negative for injury and pain, : Negative for injury, bleeding, discharge, and swelling, MS/Extremity: Negative for injury and deformity, Skin: Negative for injury, rash, and discoloration, Psych: Negative for depression, anxiety, suicide ideation, homicidal ideation, and hallucinations, Allergy/Immunology: Negative for hives, rash, and allergies, Endocrine: Negative for neck swelling, polydipsia, polyuria, polyphagia, and marked weight changes, Hematologic/Lymphatic: Negative for swollen nodes, abnormal bleeding, and unusual bruising. 18:08 Neuro: Positive for dizziness. Exam: 18:08 Constitutional: This is a well developed, well nourished patient who is awake, alert, velma and in no acute distress. Head/Face: Normocephalic, atraumatic. Eyes: Pupils equal round and reactive to light, extra-ocular motions intact. Lids and lashes normal. Conjunctiva and sclera are non-icteric and not injected. Cornea within normal limits. Periorbital areas with no swelling, redness, or edema. ENT: Nares patent. No nasal discharge, no septal abnormalities noted. Tympanic membranes are normal and external auditory canals are clear. Oropharynx with no redness, swelling, or masses, exudates, or evidence of obstruction, uvula midline. Mucous membranes moist. Neck: Trachea midline, no thyromegaly or masses palpated, and no cervical lymphadenopathy. Supple, full range of motion without nuchal rigidity, or vertebral point tenderness. No Meningismus. Chest/axilla: Normal chest wall appearance and motion. Nontender with no deformity. No lesions are appreciated. Cardiovascular: Regular rate and rhythm with a normal S1 and S2. No gallops, murmurs, or rubs. Normal PMI, no JVD. No pulse deficits. Respiratory: Lungs have equal breath sounds bilaterally, clear to auscultation and percussion. No rales, rhonchi or wheezes noted. No increased work of breathing, no retractions or nasal flaring. Abdomen/GI: Soft, non-tender, with normal bowel sounds. No distension or tympany. No guarding or rebound. No evidence of tenderness throughout. Back: No spinal tenderness. No costovertebral tenderness. Full range of motion. Female : Normal external genitalia. Skin: Warm, dry with normal turgor. Normal color with no rashes, no lesions, and no evidence of cellulitis. MS/ Extremity: Pulses equal, no cyanosis. Neurovascular intact. Full, normal range of motion. Neuro: Awake and alert, GCS 15, oriented to person, place, time, and situation. Cranial nerves II-XII grossly intact. Motor strength 5/5 in all extremities. Sensory grossly intact. Cerebellar exam normal. Normal gait. Psych: Awake, alert, with orientation to person, place and time. Behavior, mood, and affect are within normal limits. Vital Signs: 16:30 BP 118 / 75; Pulse 77; Resp 18; Temp 98.5(O); Pulse Ox 100% on R/A; Weight 90.72 kg; hj Height 5 ft. 8 in. (172.72 cm); 16:41 BP 129 / 55 Supine; Pulse 87; Resp 18; Pulse Ox 97% on R/A; hj 16:41 BP 122 / 61 Sitting; Pulse 80; Resp 18; Pulse Ox 98% ; hj 16:41 BP 122 / 67 Standing; Pulse 88; Resp 18; Pulse Ox 99% on R/A; hj 17:12 BP 111 / 58; Pulse 74; Resp 18; Pulse Ox 100% on R/A; hj 17:53 BP 110 / 74; Pulse 70; Resp 18; Pulse Ox 100% on R/A; hj 16:30 Body Mass Index 30.41 (90.72 kg, 172.72 cm) MDM: 16:25 Patient medically screened. [facility] 18:11 Data reviewed: vital signs, nurses notes, lab test result(s), radiologic studies, velma ultrasound. 12/30 16:26 Order name: Quantitative Hcg; Complete Time: 18:06 [facility] 12/30 16:26 Order name: Basic Metabolic Panel; Complete Time: 18:06 [facility] 12/30 16:26 Order name: CBC with Diff; Complete Time: 18:06 [facility] 12/30 16:35 Order name: Urine Culture [facility] 12/30 16:39 Order name: Urine Dipstick--Ancillary (enter results) 12/30 16:39 Order name: Urine --Ancillary (enter results) 12/30 16:26 Order name: IV Saline Lock; Complete Time: 16:40 [facility] 12/30 16:26 Order name: Labs collected and sent; Complete Time: 16:40 [facility] 12/30 16:26 Order name: NPO; Complete Time: 16:29 [facility] 12/30 16:26 Order name: Urine Dipstick-Ancillary (obtain specimen); Complete Time: 16:29 [facility] 12/30 16:40 Order name: Urine Microscopic Only; Complete Time: 18:06 [facility] 12/30 18:06 Order name: US Transvaginal Ob [facility] 12/30 16:26 Order name: Orthostatic Blood Pressure; Complete Time: 16:40 [facility] Administered Medications: 16:40 Drug: NS 0.9% 1000 ml Route: IV; Rate: 1 bolus; Site: right antecubital; hj 17:45 Follow up: IV Status: Completed infusion; IV Intake: 1000ml 16:45 Drug: Rocephin - (cefTRIAXone) 1 grams Route: IVPB; Infused Over: 30 mins; Site: right hj antecubital; 16:51 Follow up: IV Status: Completed infusion; IV Intake: 10ml Disposition: 12/30/18 18:43 Discharged to Home. Impression: related conditions, unspecified, first trimester, Urinary tract infection, site not specified. - Condition is Stable. - Discharge Instructions: Dysuria, Urinary Tract Infection, Adult, Urinary Tract Infection, Adult, [id number], First Trimester of , Pelvic Rest. - Prescriptions for Vitamin 27- 0.8 mg Oral Tablet - take 1 tablet by ORAL route once daily; 30 tablet. Macrobid 100 mg Oral Capsule - take 1 capsule by ORAL route every 12 hours for 7 days; 14 capsule. - Medication Reconciliation Form, Thank You Letter, Antibiotic Education, Prescription Opioid Use form. - Follow up: David Lawrence; When: 2 - 3 days; Reason: Recheck today's complaints, Continuance of care, Re-evaluation by your physician. Follow up: Amador Zhu; When: 2 - 3 days; Reason: Recheck today's complaints, Continuance of care, Re-evaluation by your physician. - Problem is new. - Symptoms have improved. Signatures: Dispatcher [employer] EDMS Michael Weir MD MD cha Joaquin, Henry, RN RN Liam Mascorro pc1 Corrections: (The following items were deleted from the chart) 16:49 16:31 Allergies: No Known Allergies; pc1 hj 16:49 16:31 PMHx: UTI; pc1 16:49 16:30 Home Meds: control; hj 19:11 18:43 12/30/2018 18:43 Discharged to Home. Impression: related conditions, hj unspecified, first trimester; Urinary tract infection, site not specified. Condition is Stable. Discharge Instructions: Dysuria, Urinary Tract Infection, Adult, Urinary Tract Infection, Adult, [id number], First Trimester of , Pelvic Rest. Prescriptions for Vitamin 27-0.8 mg Oral Tablet - take 1 tablet by ORAL route once daily; 30 tablet, Macrobid 100 mg Oral Capsule - take 1 capsule by ORAL route every 12 hours for 7 days; 14 capsule. and Forms are Medication Reconciliation Form, Thank You Letter, Antibiotic Education, Prescription Opioid Use. Follow up: David Lawrence; When: 2 - 3 days; Reason: Recheck today's complaints, Continuance of care, Re-evaluation by your physician. Follow up: Amador Zhu; When: 2 - 3 days; Reason: Recheck today's complaints, Continuance of care, Re-evaluation by your physician. Problem is new. Symptoms have improved. velma
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
--- NOTE | 2018-12-30 19:35 | RAD REPORT ---
EXAM DESCRIPTION: US - Transvaginal OB - 12/30/2018 6:38 pm CLINICAL HISTORY: , abdominal and pelvic cramping COMPARISON: None. FINDINGS: Cervical canal is closed. No blood or fluid in the cervical canal. And normal shaped intra uterine gestational sac is identified. pole and yolk sac seen. [place]-rump length corresponds to a 7 week 0 day age. Heart rate is 142 BPM. SUYAPA is 08/18/2019. No intrauterine mass or hemorrhage. Both ovaries are identified. No ovarian or adnexal abnormality. N o blood or fluid in the cul-de-sac. IMPRESSION: Single 7 week 0 day IUP. Normal heart rate seen. No hematoma or other intrauterine abnormality. No adnexal abnormality.
[2018-12-30 19:39] VITALS: TEMP 98.5
[2018-12-30 19:43] VITALS: O2SAT 100
[2018-12-30 19:44] VITALS: BP 110/74
== END 2018-12-30 19:11 | disposition home or self-care (01) ==
LOC: ER 15:52
DX: O23.41 Unspecified infection of urinary tract in pregnancy, first trimester (principal); Z3A.08 8 weeks gestation of pregnancy
CPT/HCPCS: 36415; 76817; 80048; 81003; 81015; 81025; 84702; 85025; 87086; 87088; 96361; 96374; 99284; J0696; J7030

== ENCOUNTER 2019-01-16 21:57 | Emergency (ER) | payer OTHER, SELFPAY ==
--- OUTSIDE RECORDS SUMMARY | 2019-01-16 21:59 | XMS REPORT | Continuity of Care Document ---
[...] Comments Source Diastolic (mm Hg) 82 08/23/2017 [id number] Systolic (mm Hg) 116 08/23/2017 [id number] Temperature Oral (F) 98.6 F 08/23/2017 [id number] Encounters Location Location Encounter Encounter Reason Attending ADM DC Status Source Details Type Number For Provider Date Date Visit Procedures Procedure Code Date Perfomer Comments Source
[2019-01-16 22:41] LABS: Urine Blood NEGATIVE (NEG); Urine Glucose NEGATIVE (NEG); Urine Protein NEGATIVE (NEG)
--- NOTE | 2019-01-16 23:53 | ER ---
Nurse's Notes [facility] Name: Elizabeth Blackwell Age: 28 yrs Sex: Female : 1990 Arrival Date: 01/16/2019 Time: 22:00 Bed 26 Private MD: Diagnosis: 9 weeks gestation of Presentation: 01/16 22:11 Presenting complaint: Patient states: "Im 10 weeks and I was spotting and I've aj1 been cramping" Patient reports that she has not had any vaginal bleeding for the past couple hours. Patient reports that she is currently 10 weeks . Transition of care: patient was not received from another setting of care. Onset of symptoms was January 16, 2019. Risk Assessment: Do you want to hurt yourself or someone else? Patient reports no desire to harm self or others. Initial Sepsis Screen: Does the patient meet any 2 criteria? No. Patient's initial sepsis screen is negative. Does the patient have a suspected source of infection? No. Patient's initial sepsis screen is negative. Care prior to arrival: None. 22:11 Method Of Arrival: Ambulatory aj1 22:11 Acuity: ARAM 3 aj1 Triage Assessment: 22:12 General: Appears in no apparent distress. comfortable, Behavior is calm, cooperative, aj1 appropriate for age. Pain: Complains of pain in right lower quadrant and left lower quadrant Pain currently is 1 out of 10 on a pain scale. Quality of pain is described as crampy. Neuro: Level of Consciousness is awake, alert, obeys commands, Oriented to person, place, time, situation. Cardiovascular: Patient's skin is warm and dry. Respiratory: Airway is patent Respiratory effort is even, unlabored, Respiratory pattern is regular, symmetrical. : Reports vaginal bleeding that is spotty, that has now resolved. 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 - Social history:: Smoking status: Patient/guardian denies using tobacco. - Ebola Screening: : Patient denies travel to an Ebola-affected area in the 21 days before illness onset. Screenin:32 Abuse screen: Denies threats or abuse. Denies injuries from another. Nutritional rv screening: No deficits noted. Tuberculosis screening: No symptoms or risk factors identified. Fall Risk None identified. Assessment: 22:30 Obstetrical Assessment: General assessment: awake and alert, Patient reports back pain. rv General: Appears in no apparent distress. comfortable, Behavior is calm, cooperative. Pain: Complains of pain in abdomen. Neuro: Level of Consciousness is awake, alert, obeys commands, Oriented to person, place, time, situation. Cardiovascular: Capillary refill < 3 seconds. Respiratory: Airway is patent. GI: No signs and/or symptoms were reported involving the gastrointestinal system. : No signs and/or symptoms were reported regarding the genitourinary system. EENT: No signs and/or symptoms were reported regarding the EENT system. Derm: Skin is intact. Vital Signs: 22:12 BP 124 / 68; Pulse 81; Resp 18; Temp 99.0; Pulse Ox 100% on R/A; Weight 90.72 kg (R); aj1 Height 5 ft. 7 in. (170.18 cm) (R); Pain 1/10; 22:12 Body Mass Index 31.32 (90.72 kg, 170.18 cm) aj1 ED Course: 22:00 Patient arrived in ED. am2 22:12 Triage completed. aj1 22:12 Arm band placed on Patient placed in an exam room. aj1 22:17 Miracle Marquez FNP-C is [facility]. kb 22:17 Galindo Kurtz MD is Attending Physician. kb 22:32 Patient has correct armband on for positive identification. Bed in low position. Call rv light in reach. Side rails up X 1. Pulse ox on. NIBP on. 23:30 Ultrasound completed. Patient tolerated well. Notified abhinav- to let miracle know US sg3 notes were in pacs. 23:36 Matter Eval Tm 1 In Process Unspecified. EDMS 23:58 No provider procedures requiring assistance completed. Patient did not have IV access rv during this emergency room visit. Administered Medications: No medications were administered Point of Care Testing: Urine : 22:32 hCG Reading: Positive; Control Reading: Positive; rv Outcome: 23:52 Discharge ordered by . kb 23:58 Discharged to home ambulatory. rv 23:58 Condition: good 23:58 Discharge instructions given to patient, Instructed on discharge instructions, follow up and referral plans. Demonstrated understanding of instructions, follow-up care. 23:59 Patient left the ED. rv Signatures: Dispatcher [employer] Miracle Robledo, MEDICAL RESEARCH SCIENTIST-C CRISSY-Glo Keen RN RN aj1 Neema Valenzuela am2 Susan Gomes sg3 Sami Mane RN RN rv Corrections: (The following items were deleted from the chart) 22:14 22:11 Presenting complaint: Patient states: "Im 10 weeks and I was spotting aj1 and I've been cramping" Patient reports that she has not had any vaginal bleeding for the past couple hours aj1
--- NOTE | 2019-01-16 23:54 | EDPHYS ---
Physician Documentation [facility] Name: Elizabeth Blackwell Age: 28 yrs Sex: Female : 1990 Arrival Date: 01/16/2019 Time: 22:00 Bed 26 Private MD: ED Physician Galindo Kurtz HPI: 01/17 00:21 This 28 yrs old Female presents to ER via Ambulatory with complaints of kb Vaginal Bleeding, + Preg <12wks. 00:21 The patient presents to the emergency department with vaginal bleeding, described as kb spotting. The estimated gestational age is 9 weeks. course: care: private OB physician, Dr. Zhu, Leakage of Fluid: none appreciated, Ultrasound: the patient had an ultrasound, Risk/complications: no obvious risks or complications are appreciated. Previous pregnancies: the patient has never been . Associated signs and symptoms: Pertinent positives: vaginal bleeding. The patient has not experienced similar symptoms in the past. The patient has not recently seen a physician. Pt reports spotting earlier today, now resolved. 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 - Social history:: Smoking status: Patient/guardian denies using tobacco. - Ebola Screening: : Patient denies travel to an Ebola-affected area in the 21 days before illness onset. ROS: 01/17 00:21 Constitutional: Negative for fever, chills, and weight loss, Cardiovascular: Negative kb for chest pain, palpitations, and edema, Respiratory: Negative for shortness of breath, cough, wheezing, and pleuritic chest pain, Abdomen/GI: Negative for abdominal pain, nausea, vomiting, diarrhea, and constipation, MS/Extremity: Negative for injury and deformity, Skin: Negative for injury, rash, and discoloration, Neuro: Negative for headache, weakness, numbness, tingling, and seizure. : Positive for vaginal bleeding. Exam: 00:21 Constitutional: This is a well developed, well nourished patient who is awake, alert, kb and in no acute distress. Head/Face: Normocephalic, atraumatic. ENT: Nares patent. No nasal discharge, no septal abnormalities noted. Tympanic membranes are normal and external auditory canals are clear. Oropharynx with no redness, swelling, or masses, exudates, or evidence of obstruction, uvula midline. Mucous membranes moist. Neck: Trachea midline, no thyromegaly or masses palpated, and no cervical lymphadenopathy. Supple, full range of motion without nuchal rigidity, or vertebral point tenderness. No Meningismus. Chest/axilla: Normal chest wall appearance and motion. Nontender with no deformity. No lesions are appreciated. Cardiovascular: Regular rate and rhythm with a normal S1 and S2. No gallops, murmurs, or rubs. Normal PMI, no JVD. No pulse deficits. Respiratory: Lungs have equal breath sounds bilaterally, clear to auscultation and percussion. No rales, rhonchi or wheezes noted. No increased work of breathing, no retractions or nasal flaring. Abdomen/GI: Soft, non-tender, with normal bowel sounds. No distension or tympany. No guarding or rebound. No evidence of tenderness throughout. Skin: Warm, dry with normal turgor. Normal color with no rashes, no lesions, and no evidence of cellulitis. MS/ Extremity: Pulses equal, no cyanosis. Neurovascular intact. Full, normal range of motion. Neuro: Awake and alert, GCS 15, oriented to person, place, time, and situation. Cranial nerves II-XII grossly intact. Motor strength 5/5 in all extremities. Sensory grossly intact. Cerebellar exam normal. Normal gait. Vital Signs: 01/16 22:12 BP 124 / 68; Pulse 81; Resp 18; Temp 99.0; Pulse Ox 100% on R/A; Weight 90.72 kg (R); aj1 Height 5 ft. 7 in. (170.18 cm) (R); Pain 1/10; 22:12 Body Mass Index 31.32 (90.72 kg, 170.18 cm) aj1 MDM: 22:17 Patient medically screened. kb 01/17 00:20 Data reviewed: vital signs, nurses notes. Data interpreted: Pulse oximetry: on room air kb is 100 %. Interpretation: normal. Counseling: I had a detailed discussion with the patient and/or guardian regarding: the historical points, exam findings, and any diagnostic results supporting the discharge/admit diagnosis, radiology results, the need for outpatient follow up, an OB/Gyne specialist, to return to the emergency department if symptoms worsen or persist or if there are any questions or concerns that arise at home. 01/16 22:25 Order name: Urine Dipstick--Ancillary (enter results); Complete Time: 22:44 mt 01/16 22:25 Order name: Urine --Ancillary (enter results); Complete Time: 22:44 mt 01/16 22:18 Order name: Urine Test (obtain specimen); Complete Time: 22:30 kb 01/16 22:18 Order name: IV Saline Lock; Complete Time: 22:30 kb 01/16 22:18 Order name: Labs collected and sent; Complete Time: 22:30 kb 01/16 22:18 Order name: NPO; Complete Time: 22:30 kb 01/16 22:18 Order name: Urine Dipstick-Ancillary (obtain specimen); Complete Time: 22:30 kb 01/16 23:36 Order name: Matter Eval Tm 1 EDMS Administered Medications: No medications were administered Point of Care Testing: Urine : 01/16 22:32 hCG Reading: Positive; Control Reading: Positive; rv Disposition: 01/16/19 23:52 Discharged to Home. Impression: 9 weeks gestation of . - Condition is Stable. - Discharge Instructions: First Trimester of , [id number]. - Medication Reconciliation Form, Thank You Letter, Antibiotic Education, Prescription Opioid Use form. - Follow up: Emergency Department; When: As needed; Reason: Worsening of condition. Follow up: Private Physician; When: 2 - 3 days; Reason: Recheck today's complaints, Continuance of care, Re-evaluation by your physician. Addendum: 01/19/2019 07:02 Co-signature as Attending Physician, Galindo Kurtz MD I agree with the assessment and k dr plan of care. Signatures: Dispatcher [employer] EDMS iMracle Marquez, ASSISTANT GENERAL MANAGER-C ASSISTANT GENERAL MANAGER-CkGlo Swain RN RN aj1 Galindo Kurtz MD MD kdr Sami Mane RN RN rv Corrections: (The following items were deleted from the chart) 01/16 23:02 22:18 CBC+H.LAB.BRZ ordered. EDMS EDMS 23:03 22:18 QUANTITATIVE HCG+C.LAB.BRZ ordered. EDMS EDMS 23:03 22:18 BASIC METABOLIC PANEL+C.LAB.BRZ ordered. EDMS EDMS 23:36 22:34 Transvaginal Ob+US.RAD.BRZ ordered. EDMS EDMS 23:59 23:52 01/16/2019 23:52 Discharged to Home. Impression: 9 weeks gestation of . rv Condition is Stable. Forms are Medication Reconciliation Form, Thank You Letter, Antibiotic Education, Prescription Opioid Use. Follow up: Emergency Department; When: As needed; Reason: Worsening of condition. Follow up: Private Physician; When: 2 - 3 days; Reason: Recheck today's complaints, Continuance of care, Re-evaluation by your physician. kb
[2019-01-17 00:37] VITALS: BP 124/68; TEMP 99; O2SAT 100
--- NOTE | 2019-01-17 11:22 | RAD REPORT ---
EXAM DESCRIPTION: US - Matter Ashley Tm 1 - 01/16/2019 11:36 pm CLINICAL HISTORY: VAGINAL BLEEDING Early . COMPARISON: Transvaginal OB dated 12/30/2018 FINDINGS: A single gestational sac is seen within the uterus. The shape of the sac is within normal limits for gestational age. Within the sac is a single pole with crown-rump length of 2.5 cm, c orrelating to estimated gestational age of 9 weeks 2 days. Estimated date of delivery is 08/19/2019. Heart rate is 161 BPM. The placenta is not yet developed / visualized due to early gestational age. The maternal adnexa and ovaries are within normal limits. Normal Doppler blood flow was demonstrated to both ovaries. IMPRESSION: Single live early intrauterine gestation with estimated gestational age of 9 weeks 2 day s, SUYAPA 08/19/2019. No unusual or unexpected finding.
== END 2019-01-16 23:59 | disposition home or self-care (01) ==
LOC: ER 21:57
DX: O20.9 Hemorrhage in early pregnancy, unspecified (principal); Z3A.09 9 weeks gestation of pregnancy
CPT/HCPCS: 76801; 81003; 81025; 99283

== ENCOUNTER 2019-08-10 03:50 | Inpatient (IN) | payer OTHER ==
[~2019-08-10 03:50] MED LIST: Ringers Lactate 1,000 ML IV PRN
[2019-08-10] MEDS ORDERED: Ringers Lactate 1,000 ML IV SCH (04:00)
[2019-08-10 04:51] VITALS: BMI 33.5
[2019-08-10 04:57] LABS: Basophils % 0.9 % (0-1.3); Hematocrit 30.8 % (36.0-45.0); Lymphocytes % 28.3 % (15.3-44.8); RBC Red Blood Cell Count 3.42 M/uL (3.86-4.86)
[2019-08-10] MEDS ORDERED: NA CIT/CITRIC AC 30 ML ORAL UDC PO ONE (05:30)
[2019-08-10] MEDS ORDERED: METOCLOPRAMIDE 10 MG/2mL INJ IV ONE (05:30)
[2019-08-10] MEDS ORDERED: FAMOTIDINE 20 MG/2 ML VIAL IV ONE (05:30)
[2019-08-10] MEDS ORDERED: CEFAZOLIN/SWI 2gm 2 GM/20 ML SYR ONE (06:46)
[2019-08-10 06:54] LABS: Urine Appearance CLOUDY; Urine Bilirubin NEGATIVE (NEG); Urine Blood NEGATIVE (NEG); Urine Color YELLOW; Urine Glucose NEGATIVE (NEG); Urine Protein NEGATIVE (NEG); Urine Specific Gravity 1.015 (1.005-1.030)
[2019-08-10 06:58] LABS: Urine Microscopic Reflex ORDER UMIC
[2019-08-10] MEDS ORDERED: METHYLERGONOVINE 0.2MG/ML AMP IM ONE (06:58)
[2019-08-10] MEDS ORDERED: CARBOPROST TROME 250 MCG/ML IM ONE (06:58)
[2019-08-10] MEDS ORDERED: CEFAZOLIN 2 GM in NA CHLORIDE 0.9% 100 ML IVPB ONE (07:00)
[2019-08-10] MEDS ORDERED: MORPHINE SULFATE/PF 1 MG/ML (10 ML AMP) ONE (07:13)
[2019-08-10] MEDS ORDERED: OXYTOCIN 10 UNIT/ML ML IV ONE (07:14)
[2019-08-10] MEDS ORDERED: EPHEDRINE SULF 50 MG/ML VIAL ONE (07:14)
[2019-08-10] MEDS ORDERED: NS 0.9% VIAL 10 ML ONE (07:15)
[2019-08-10] MEDS ORDERED: ONDANSETRON 4 MG/2 ML VIAL ONE (07:16)
[2019-08-10 07:17] LABS: Urine RBC <5 /HPF (NONE SEEN)
[2019-08-10 07:18] LABS: Urine Bacteria 20-50 /HPF (<20); Urine Culture Reflex Order NOT NEEDED
[2019-08-10] MEDS ORDERED: BUPIVACAINE 0.75% (PF) 2 ML SP ONE ×2 (07:18→08:06)
[2019-08-10] MEDS ORDERED: LIDOCAINE 1% MPF 5 ML VIAL ONE (07:19)
[2019-08-10] MEDS ORDERED: PROPOFOL 200 MG/20 ML VIAL IV ONE (07:46)
[2019-08-10] MEDS ORDERED: ROCURONIUM 50 MG/5 ML VIAL IV ONE (07:47)
[2019-08-10] MEDS ORDERED: LIDOCAINE 2% MPF 5 ML VIAL ONE (07:48)
[2019-08-10] MEDS ORDERED: SUCCINYLCHOLINE 20 MG/ML (10 ML) IV ONE (07:48)
[2019-08-10] MEDS ORDERED: INFLUENZA VACCINE (for 3y+) 0.5 ML DOSE IMVAC ONE (08:00)
[2019-08-10] MEDS ORDERED: OXYTOCIN/LR 20 UNIT/1,000 ML BAG IV ONE (08:43)
[2019-08-10] MEDS ORDERED: PRENATAL VITAMIN PO ONE (08:45)
[2019-08-10] MEDS ORDERED: BISACODYL 10 MG RECTAL SUPP RECT PRN (08:58)
[2019-08-10] MEDS ORDERED: ONDANSETRON 4 MG/2 ML VIAL IV PRN (08:58)
[2019-08-10] MEDS ORDERED: ZOLPIDEM TARTRATE 5 MG TABLET PO PRN (08:58)
[2019-08-10] MEDS ORDERED: DOCUSATE NA/SENNA CONC 1 TAB PO PRN (08:58)
[2019-08-10] MEDS ORDERED: ACETAMINOPHEN 500 MG TAB PO PRN (08:58)
[2019-08-10] MEDS ORDERED: D5LR 1,000 ML with OXYTOCIN 20 UNIT IV SCH ×2 (09:00)
[2019-08-10] MEDS ORDERED: OXYTOCIN/LR 20 UNIT/1,000 ML BAG IV SCH (09:00)
[2019-08-10] MEDS ORDERED: DIPHENHYDRAMINE 50 MG/ML VIAL IV ONE (09:09)
[2019-08-10] MEDS ORDERED: PROMETHAZINE 25 MG/ML VIAL IM PRN (09:09)
[2019-08-10] MEDS: KETOROLAC 30 MG/ML INJ IV PRN ×2 (15:05→23:20)
[2019-08-10] MEDS ORDERED: CEFAZOLIN/SWI 1gm 1 GM/10 ML SYR IV SCH (15:55)
[2019-08-10] MEDS ORDERED: DIPHENHYDRAMINE 50 MG/ML VIAL IV PRN (18:45)
--- NOTE | 2019-08-10 19:50 | OP ---
Surgeon: Amador Zhu MD Restaurant Kitchen Manager: Dr. Rosales. Anesthesiologist: Dr. Andrews lopez. Indications: This is a 29-year-old 3, para 2, for repeat section, 39 weeks. Full p reoperative counseling concerning procedure and possible complications including infection, blood los s, anesthetic complications, injury to bladder, bowel, ureter, postoperative complications, clots in legs, pneumonia. The patient knows fully well this does not constitute all the possible problems serina t could occur during or following surgery and knows with each surgery the risk of complication is hig her. Anesthesia: Spinal block anesthesia. Description Of Procedure: After prepping and draping, time-out was performed. Low transverse incisi on was made over previous incision site. The incision was carried to the fascia. The fascia was inc ised and incision carried transversely bilaterally. Anterior fascial plane and posterior fascial alina ne were developed with both blunt and sharp dissection. The underlying peritoneal defect was encount ered and entered. Bladder flap developed. Low transverse uterine incision created. 7 pound 4 ounce female was delivered without difficulties. Apgars 9 and 9. Cord blood specimen was obtained. Plac enta was removed manually. Uterus cleared of clot and blood. Cervical os dilated, ring clamp used. Uterus closed with a running locked stitch of 1 chromic followed by 2-3 [id number] stitches in the right angle for complete hemostasis. Estimated blood loss 800 to 900 mL. Gutters clear of clot and blood. Uterus was replaced in the peritoneal cavity. Inspection of the suture line showed no ma lobo significant bleeding. Small bleeders were fulgurated. At this time, muscles were reapproximated using 0 Vicryl. The fascia was closed with 1 PDS run from either angle to the midline. Subcutaneou s tissue closed with 3-0 plain. Absorbable julien placed and then metal julien. Patient had been given 2 g of Ancef prior to the procedure. She came into the hospital with hematocrit of 30.5, admit mary ann to not taking her vitamins. Final Diagnoses: Term intrauterine , pre-existing anemia, repeat section. LETICIA/MOE Voice ID: [id number] Report ID: [id number]
[2019-08-10 22:06] LABS: RPR (Rapid Plasma Reagin) NON-REACT (NON-REACT)
[2019-08-11] MEDS: IBUPROFEN 400 MG TAB PO SCH ×2 (07:35→16:02)
[2019-08-11] MEDS: Oxycodone HCl/Acetaminophen 1 TAB TAB PO PRN ×2 (09:00→19:40)
--- NOTE | 2019-08-11 13:09 | PN ---
Postoperatively, has done quite well. Vital signs are all normal. Lochia is normal. We will discon tinue Ortega and IV this morning. H and H with minimal change pre and postop. Full postop talk given . If all goes well dismiss tomorrow. Encourage ambulation. Tdap and flu shot discussed. No post s fabio block problems. Doing well. LETICIA/MOE Voice ID: [id number] Report ID: [id number]
--- NOTE | 2019-08-11 13:18 | PN ---
Patient is now on Pitocin, injecting every 1-1/2 to 2 minutes. Baby looks good. She is now 3.5 cm, 70% to 80% effaced, vertex, -1 station. Pelvic rocks discussed with the patient. She probably will be requesting epidural, but right now is doing quite well with breathing techniques. Once she gets t o 5 cm, she will probably request epidural anesthesia. Admission talk given again, we will check her again in an hour and see what kind of progress she is making. LETICIA/MOE Voice ID: [id number] Report ID: [id number]
[2019-08-12] MEDS: IBUPROFEN 400 MG TAB PO SCH (00:15)
[2019-08-12] MEDS: Oxycodone HCl/Acetaminophen 1 TAB TAB PO PRN (04:05)
[2019-08-12 07:57] VITALS: BP 124/65; TEMP 97.8
--- NOTE | 2019-08-13 00:32 | DS ---
Date of Discharge: 08/12/2019 Hospital Course: 29-year-old 3, para 2, for repeat section. Underwent repeat ashwin shravan section, low transverse cervical, spinal block anesthesia. Delivery of a 7 pounds 4 ounces femal e. Apgars 9 and 9. Estimated blood loss 800 mL to 900 mL. Ancef used for prophylaxis. H and H wit h minimal change pre and postop. Ambulating and voiding. Lochia is normal. No post spinal block pr oblems. Dismissed with tramadol for analgesia. To report back to my office next week for followup, to report any temperature elevation of 100 degrees or greater, severe pain, heavy bleeding, or any ot her type of abnormalities. Dismissed with tramadol for analgesia, although she may elect to take Mot rin instead. Tdap and flu shots have been offered and discussed numerous times. Final Diagnoses: Term intrauterine at 39 weeks, repeat section, spinal block anes thesia. LETICIA/MOE Voice ID: [id number] Report ID: [id number]
[2019-08-13 02:56] LABS: HBsAG Nonreactive (Nonreactive)
== END 2019-08-12 09:45 | disposition home or self-care (01) | DRG 788 ==
LOC: 2ND-WC 03:50
PROVIDERS: ADMIT Specialist; ATTEND Specialist
PROC: 10D00Z1 Extraction of Products of Conception, Low, Open Approach (ICD-10-PCS; principal; 2019-08-10 07:30)
DX: O34.211 Maternal care for low transverse scar from previous cesarean delivery (principal); O99.02 Anemia complicating childbirth; D64.9 Anemia, unspecified; Z3A.39 39 weeks gestation of pregnancy; Z37.0 Single live birth
CPT/HCPCS: 36415; 81003; 81015; 85014; 85025; 86592; 86900; 86901; 87340; 88307; J0330; J0690; J1200; J2210; J2405; J2590; J2704; J2765; J7120

== ENCOUNTER 2019-08-12 20:37 | Emergency (ER) | payer OTHER ==
[2019-08-12] MEDS ORDERED: NA CHLORIDE 0.9% 1,000 ML ONE (21:27)
[2019-08-12] MEDS ORDERED: DIPHENHYDRAMINE 50 MG/ML VIAL ONE (21:27)
[2019-08-12] MEDS ORDERED: METHYLPREDNISOLONE 125 MG INJ ONE (21:27)
[2019-08-12] MEDS ORDERED: HYDROCODONE/APAP 10/325 TAB ONE (21:27)
[2019-08-12] MEDS ORDERED: FAMOTIDINE 20 MG/2 ML VIAL IV ONE (21:28)
--- NOTE | 2019-08-12 22:32 | EDPHYS ---
Physician Documentation [facility] Name: Elizabeth Blackwell Age: 29 yrs Sex: Female : 1990 Arrival Date: 08/12/2019 Time: 20:41 Bed 19 Private MD: ED Physician Miguel Lopez HPI: 08/12 21:35 This 29 yrs old Female presents to ER via Ambulatory with complaints of kb Allergic Reaction. 21:35 The patient presents with itching, localized swelling, rash, redness of skin. Onset: kb The symptoms/episode began/occurred today. Associated signs and symptoms: Pertinent positives: hives, swelling, Pertinent negatives: fever. Possible causes: tramadol or milk of magnesia. At home the patient or guardian has treated the symptoms with nothing. Severity of symptoms: At their worst the symptoms were moderate in the emergency department the symptoms are unchanged. The patient has not experienced similar symptoms in the past. The patient has not recently seen a physician. Pt reports she was discharged from [facility] s/p today. Was prescribed tramadol for pain and told to take MOM for constipation. States she took both today and started having hives and swelling. Both are new medications so she isn't sure which caused the reaction. 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 - Social history:: Smoking status: Patient/guardian denies using tobacco. - Ebola Screening: : Patient denies travel to an Ebola-affected area in the 21 days before illness onset. ROS: 21:35 Constitutional: Negative for fever, chills, and weight loss, Neck: Negative for injury, kb pain, and swelling, Cardiovascular: Negative for chest pain, palpitations, and edema, Respiratory: Negative for shortness of breath, cough, wheezing, and pleuritic chest pain, Abdomen/GI: Negative for abdominal pain, nausea, vomiting, diarrhea, and constipation, Back: Negative for injury and pain, MS/Extremity: Negative for injury and deformity, Neuro: Negative for headache, weakness, numbness, tingling, and seizure. 21:35 Skin: Positive for rash, swelling. Exam: 21:35 Constitutional: This is a well developed, well nourished patient who is awake, alert, kb and in no acute distress. ENT: Nares patent. No nasal discharge, no septal abnormalities noted. Tympanic membranes are normal and external auditory canals are clear. Oropharynx with no redness, swelling, or masses, exudates, or evidence of obstruction, uvula midline. Mucous membranes moist. Neck: Trachea midline, no thyromegaly or masses palpated, and no cervical lymphadenopathy. Supple, full range of motion without nuchal rigidity, or vertebral point tenderness. No Meningismus. Chest/axilla: Normal chest wall appearance and motion. Nontender with no deformity. No lesions are appreciated. Cardiovascular: Regular rate and rhythm with a normal S1 and S2. No gallops, murmurs, or rubs. Normal PMI, no JVD. No pulse deficits. Respiratory: Lungs have equal breath sounds bilaterally, clear to auscultation and percussion. No rales, rhonchi or wheezes noted. No increased work of breathing, no retractions or nasal flaring. Abdomen/GI: Soft, non-tender, with normal bowel sounds. No distension or tympany. No guarding or rebound. No evidence of tenderness throughout. MS/ Extremity: Pulses equal, no cyanosis. Neurovascular intact. Full, normal range of motion. Neuro: Awake and alert, GCS 15, oriented to person, place, time, and situation. Cranial nerves II-XII grossly intact. Motor strength 5/5 in all extremities. Sensory grossly intact. Cerebellar exam normal. Normal gait. 21:35 Head/face: Noted is no obvious of injury or deformity except rash, that is urticarial, swelling, that is mild, of the face. Vital Signs: 20:45 BP 117 / 71; Pulse 91; Resp 18; Temp 99.2; Pulse Ox 100% on R/A; Height 5 ft. 7 in. aj1 (170.18 cm) (R); Pain 9/10; 22:39 BP 117 / 73; Pulse 73; Resp 18; Pulse Ox 98% on R/A; MDM: 21:05 Patient medically screened. kb 21:26 Data reviewed: vital signs, nurses notes. Data interpreted: Pulse oximetry: on room air kb is 100 %. Interpretation: normal. 22:31 Counseling: I had a detailed discussion with the patient and/or guardian regarding: the kb historical points, exam findings, and any diagnostic results supporting the discharge/admit diagnosis, the need for outpatient follow up, a family practitioner, to return to the emergency department if symptoms worsen or persist or if there are any questions or concerns that arise at home. 08/12 21:23 Order name: IV Start; Complete Time: 21:40 kb Administered Medications: 21:40 Drug: SOLU-Medrol 125 mg Route: IVP; Site: right antecubital; 22:40 Follow up: Response: No adverse reaction :40 Drug: Pepcid 20 mg Route: IVP; Site: right antecubital; 22:40 Follow up: Response: No adverse reaction 21:40 Drug: Wasta 10 mg-325 mg 1 tabs Route: PO; 22:40 Follow up: Response: No adverse reaction; Pain is decreased; RASS: Alert and Calm (0) 21:41 Drug: Benadryl 12.5 mg Route: IVP; Site: right antecubital; 22:40 Follow up: Response: No adverse reaction :41 Drug: NS 0.9% 1000 ml Route: IV; Rate: 1000 ml; Site: right antecubital; 22:40 Follow up: Response: No adverse reaction; IV Status: Completed infusion Disposition: 08/13 07:11 Co-signature as Attending Physician, Miguel Lopez MD Available for consultation at ps1 all times . Disposition: 08/12/19 22:31 Discharged to Home. Impression: Urticaria. - Condition is Stable. - Discharge Instructions: Hives, [id number], Allergies, [id number]. - Prescriptions for Pepcid 20 mg Oral Tablet - take 1 tablet by ORAL route every 12 hours for 5 days; 10 tablet. Prednisone 20 mg Oral Tablet - take 1 tablet by ORAL route once daily for 5 days; 5 tablet. - Medication Reconciliation Form, Thank You Letter, Antibiotic Education, Prescription Opioid Use form. - Follow up: Emergency Department; When: As needed; Reason: Worsening of condition. Follow up: Private Physician; When: 2 - 3 days; Reason: Recheck today's complaints, Continuance of care, Re-evaluation by your physician. Signatures: Miracle Marquez FNP-C FNP-Glo Keen RN RN aj1 Pam Jessica Phillip, MD MD ps1 Corrections: (The following items were deleted from the chart) 08/12 22:43 22:31 08/12/2019 22:31 Discharged to Home. Impression: Urticaria. Condition is Stable. wh Forms are Medication Reconciliation Form, Thank You Letter, Antibiotic Education, Prescription Opioid Use. Follow up: Emergency Department; When: As needed; Reason: Worsening of condition. Follow up: Private Physician; When: 2 - 3 days; Reason: Recheck today's complaints, Continuance of care, Re-evaluation by your physician. kb
--- NOTE | 2019-08-12 22:32 | ER ---
Nurse's Notes [facility] Name: Elizabeth Blackwell Age: 29 yrs Sex: Female : 1990 Arrival Date: 08/12/2019 Time: 20:41 Bed 19 Private MD: Diagnosis: Urticaria Presentation: 08/12 20:42 Presenting complaint: Patient states: "I got discharged from my this morning, aj1 and they prescribed me Tramadol and milk of magnesia so that all that I've taken and now I have swelling in my face" Denies shortness of breath. Transition of care: patient was not received from another setting of care. Onset: The symptoms/episode began/occurred 6 hour(s) ago. Anaphylaxis evaluation, no signs or symptoms of anaphylaxis were noted. Onset of symptoms was August 12, 2019 at 14:00. Risk Assessment: Do you want to hurt yourself or someone else? Patient reports no desire to harm self or others. Initial Sepsis Screen: Does the patient meet any 2 criteria? No. Patient's initial sepsis screen is negative. Does the patient have a suspected source of infection? No. Patient's initial sepsis screen is negative. Care prior to arrival: None. 20:42 Method Of Arrival: Ambulatory aj1 20:42 Acuity: ARAM 3 aj1 Triage Assessment: 20:45 General: Appears in no apparent distress. comfortable, Behavior is calm, cooperative, aj1 appropriate for age. Pain: Pain currently is 9 out of 10 on a pain scale. Neuro: Level of Consciousness is awake, alert, obeys commands. Cardiovascular: Patient's skin is warm and dry. Respiratory: Airway is patent Respiratory effort is even, unlabored, Respiratory pattern is regular, symmetrical. 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 - Social history:: Smoking status: Patient/guardian denies using tobacco. - Ebola Screening: : Patient denies travel to an Ebola-affected area in the 21 days before illness onset. Screenin:52 Abuse screen: Denies threats or abuse. Denies injuries from another. Nutritional screening: No deficits noted. Tuberculosis screening: No symptoms or risk factors identified. Fall Risk None identified. Assessment: 21:00 General: Appears in no apparent distress. Behavior is calm, cooperative, appropriate wh for age. Pain: Complains of pain in abdomen Pain does not radiate. Neuro: Level of Consciousness is awake, alert, obeys commands, Oriented to person, place, time, situation, Appropriate for age. Cardiovascular: Heart tones S1 S2 Capillary refill < 3 seconds. Respiratory: Airway is patent Respiratory effort is even, unlabored, Respiratory pattern is regular, symmetrical. GI: Abdomen is flat, S/P Caesarian Section. : No signs and/or symptoms were reported regarding the genitourinary system. EENT: No signs and/or symptoms were reported regarding the EENT system. Derm: Skin is intact, is healthy with good turgor, Skin is pink, warm \\T\\ dry. normal. Derm: Rash noted that is on face. Musculoskeletal: Circulation, motion, and sensation intact. 21:00 Respiratory: Breath sounds are clear bilaterally. 22:30 Reassessment: Patient appears in no apparent distress at this time. No changes from previously documented assessment. Patient and/or family updated on plan of care and expected duration. Pain level reassessed. Patient is alert, oriented x 3, equal unlabored respirations, skin warm/dry/pink. Patient denies pain at this time. Patient states feeling better. Patient states symptoms have improved. Vital Signs: 20:45 BP 117 / 71; Pulse 91; Resp 18; Temp 99.2; Pulse Ox 100% on R/A; Height 5 ft. 7 in. aj1 (170.18 cm) (R); Pain 9/10; 22:39 BP 117 / 73; Pulse 73; Resp 18; Pulse Ox 98% on R/A; ED Course: 20:41 Patient arrived in ED. cl3 20:44 Triage completed. aj1 20:45 Arm band placed on Patient placed in an exam room. aj1 20:49 Pam Jessica is Primary Nurse. wh 21:05 [facility]C [facility] kb 21:05 Miguel Lopez MD is Attending Physician. kb 21:41 Inserted saline lock: 22 gauge in right antecubital area, using aseptic technique. 22:00 Patient has correct armband on for positive identification. Bed in low position. Call light in reach. Side rails up X 1. Pulse ox on. NIBP on. 22:41 No provider procedures requiring assistance completed. IV discontinued, intact, bleeding controlled, No redness/swelling at site. Administered Medications: 21:40 Drug: SOLU-Medrol 125 mg Route: IVP; Site: right antecubital; 22:40 Follow up: Response: No adverse reaction :40 Drug: Pepcid 20 mg Route: IVP; Site: right antecubital; 22:40 Follow up: Response: No adverse reaction : Drug: [place] 10 mg-325 mg 1 tabs Route: PO; :40 Follow up: Response: No adverse reaction; Pain is decreased; RASS: Alert and Calm (0) : Drug: Benadryl 12.5 mg Route: IVP; Site: right antecubital; :40 Follow up: Response: No adverse reaction : Drug: NS 0.9% 1000 ml Route: IV; Rate: 1000 ml; Site: right antecubital; :40 Follow up: Response: No adverse reaction; IV Status: Completed infusion Outcome: 22:31 Discharge ordered by . chilo 22:42 Discharged to home ambulatory, with family. 22:42 Condition: good 22:42 Discharge instructions given to patient, Instructed on discharge instructions, follow up and referral plans. medication usage, POC Hives and Allergies Demonstrated understanding of instructions, follow-up care, medications, POC Prescriptions given X 2. 22:43 Patient left the ED. Signatures: Miracle Marquez, KINDERGARTEN PREP TEACHER-C KINDERGARTEN PREP TEACHER-CkGlo Swain, RN RN aj1 Pam Jessica Sangeeta Hernandez cl3 Corrections: (The following items were deleted from the chart) 20:46 20:42 Acuity: ARAM 4 aj1 aj1
[2019-08-12 23:04] VITALS: BP 117/73; O2SAT 98
[2019-08-12 23:06] VITALS: TEMP 99.2
== END 2019-08-12 22:43 | disposition home or self-care (01) ==
LOC: ER 20:37
DX: L50.9 Urticaria, unspecified (principal)
CPT/HCPCS: 96361; 96375; 96374; 99284; J1200; J7030; J2930

== ENCOUNTER 2021-12-14 09:21 | Emergency (ER) | payer BC, OTHER, SELFPAY ==
[2021-12-14 10:14] LABS: Absolute Lymphocytes (CBC) 1.9 K/uL (0.7-4.9); Hematocrit 37.3 % (36.0-45.0); Lymphocytes % 22.6 % (15.3-44.8); MPV 8.5 fL (7.6-11.3); RBC Red Blood Cell Count 4.17 M/uL (3.86-4.86)
[2021-12-14 10:15] LABS: Protime INR 0.94
[2021-12-14 10:30] LABS: ALT/SGPT 24 U/L (12-78); AST/SGOT 11 U/L (15-37); Albumin 3.5 g/dL (3.4-5.0); Alkaline Phosphatase 70 U/L (45-117); BUN Blood Urea Nitrogen 16 mg/dL (7-18); Bicarbonate 24 mmol/L (21-32); Bilirubin Direct < 0.1 mg/dL (0-0.2); Bilirubin Total 0.2 mg/dL (0.2-1.0); Glucose Level 113 mg/dL (74-106); Potassium 4.2 mmol/L (3.5-5.1); Protein, Total 7.1 g/dL (6.4-8.2); Sodium Level 138 mmol/L (136-145)
[2021-12-14 10:41] LABS: Urine Blood Negative (Negative); Urine Glucose Negative (Negative); Urine Protein Negative (Negative)
--- NOTE | 2021-12-14 11:19 | RAD REPORT ---
EXAM DESCRIPTION: CT - Chest For Pe Angio - 12/14/2021 11:08 am CLINICAL HISTORY: Chest pain. CHEST PAIN COMPARISON: No comparisons TECHNIQUE: CT angiogram of the pulmonary arteries was performed with MIP. All CT scans are performed using dose optimization technique as appropriate and may include automated exposure control or mA/KV adjustment according to patient size. FINDINGS: No evidence of pulmonary thromboembolism. No acute aortic finding demonstrated. The lungs are clear. No significant pericardial or pleural fluid. No concerning bony finding. IMPRESSION: No evidence of pulmonary thromboembolism. No acute lung findings.
--- NOTE | 2021-12-14 11:52 | ER ---
Nurse's Notes [facility] Name: Elizabeth Blackwell Age: 31 yrs Sex: Female : 1990 Arrival Date: 12/14/2021 Time: 09:25 Bed 8 Private MD: Diagnosis: Pleurisy, chest pain Presentation: 12/14 09:32 Chief complaint: Patient states: that she has been having chest pain off and on for 2- ap3 3 days. Patient reports that the chest pain started 12/12/2021, and it kept her up that night. Patient states that she had no chest pain yesterday, but woke up with it this morning. Coronavirus screen: At this time, the client does not indicate any symptoms associated with coronavirus-19. Ebola Screen: No symptoms or risks identified at this time. Initial Sepsis Screen: Does the patient meet any 2 criteria? No. Patient's initial sepsis screen is negative. Does the patient have a suspected source of infection? No. Patient's initial sepsis screen is negative. Risk Assessment: Do you want to hurt yourself or someone else? Patient reports no desire to harm self or others. Onset of symptoms was December 12, 2021. 09:32 Method Of Arrival: Ambulatory ap3 09:32 Acuity: ARAM 3 ap3 Triage Assessment: 09:37 General: Appears in no apparent distress. comfortable, Behavior is calm, cooperative, ap3 appropriate for age. Pain: Denies pain. Pain began 2-3 days ago. patient denies pain at this time Is intermittent. Neuro: Level of Consciousness is awake, alert, obeys commands, Oriented to person, place, time, situation, Gait is steady, Speech is normal. Cardiovascular: Reports chest pain, but denies pain at this time. Respiratory: Airway is patent Respiratory effort is even, unlabored, Respiratory pattern is regular, symmetrical. 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 Flu vaccine is up to date. - Social history:: Smoking status: unknown Patient uses alcohol, occasionally. street drugs, marijuana. Screenin:39 Abuse screen: Denies threats or abuse. Nutritional screening: No deficits noted. ap3 Tuberculosis screening: No symptoms or risk factors identified. Fall Risk None identified. Assessment: 09:40 General: SEE TRIAGE NOTE. bp 11:26 Reassessment: No changes from previously documented assessment. Patient and/or family bp updated on plan of care and expected duration. Pain level reassessed. ALL CURRENT ORDERS COMPLETED, RESULTS UNREMARKABLE. 11:58 Reassessment: PT D/C HOME AMBULATORY, DX WITH PLEURISY. bp 12:00 Pain: Pain does not radiate. ll1 Vital Signs: 09:32 BP 127 / 78; Pulse 109; Resp 18; Temp 97.9; Pulse Ox 99% ; Weight 114.31 kg; Height 5 ap3 ft. 8 in. (172.72 cm); 10:30 BP 147 / 83; Pulse 90; Resp 21; Pulse Ox 98% ; bp 11:26 BP 136 / 88; Pulse 96; Resp 20; Pulse Ox 100% ; bp 12:01 BP 122 / 80; Pulse 81; Resp 16; Pulse Ox 98% ; bp 09:32 Body Mass Index 38.32 (114.31 kg, 172.72 cm) ap3 ED Course: 09:25 Patient arrived in ED. am2 09:34 Triage completed. ap3 09:39 Arm band placed on right wrist. ap3 09:40 Juanita Goetz MD is Attending Physician. sp3 09:40 Patient has correct armband on for positive identification. Placed in gown. Bed in low bp position. Call light in reach. Side rails up X2. Pulse ox on. NIBP on. 09:40 Patient maintains SpO2 saturation greater than 95% on room air. bp 09:41 David Abarca, LINN is Primary Nurse. bp 11:08 CT Chest For PE Angio In Process Unspecified. EDMS 11:58 No provider procedures requiring assistance completed. intact, bleeding controlled, No bp redness/swelling at site. Pressure dressing applied. 12:00 No provider procedures requiring assistance completed. IV discontinued, intact, ll1 bleeding controlled, No redness/swelling at site. Pressure dressing applied. Administered Medications: No medications were administered Outcome: 11:51 Discharge ordered by . sp3 12:00 Discharged to home ambulatory. ll1 12:00 Condition: stable 12:00 Discharge instructions given to patient, Instructed on discharge instructions, follow up and referral plans. medication usage, Demonstrated understanding of instructions, follow-up care, medications, Prescriptions given X 1. 12:01 Patient left the ED. ll1 Signatures: Dispatcher [employer] EDMS Neema Valenzuela am2 David Abarca RN RN bp Neema Dennison RN RN ap3 Hany Hernandez RN RN ll1 Juanita Goetz MD MD sp3
--- NOTE | 2021-12-14 11:52 | EDPHYS ---
Physician Documentation [facility] Name: Elizabeth Blackwell Age: 31 yrs Sex: Female : 1990 Arrival Date: 12/14/2021 Time: 09:25 Bed 8 Private MD: ED Physician Juanita Goetz HPI: 12/14 09:49 This 31 yrs old Female presents to ER via Ambulatory with complaints of Chest Pain, sp3 Shoulder Pain, Back Pain. 09:49 31-year-old female with no significant past medical history presents with a 3-day sp3 history of pleuritic chest pain on the anterior chest extending into the back and right shoulder. Patient denies any trauma, shortness of breath, cough, fever, abdominal pain, vomiting, alcohol use, prior ulcer or reflux history, prolonged immobilization, oral contraception use, any other findings on ROS at this time. Pain is better at this time and was at its peak approximately 2 hours ago and was described as sharp and "spreading around".. 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 Flu vaccine is up to date. - Social history:: Smoking status: unknown Patient uses alcohol, occasionally. street drugs, marijuana. ROS: 09:50 Constitutional: Negative for fever, chills, and weight loss, Eyes: Negative for injury, sp3 pain, redness, and discharge, ENT: Negative for injury, pain, and discharge, Neck: Negative for injury, pain, and swelling, Respiratory: Negative for shortness of breath, cough, wheezing, and pleuritic chest pain, Abdomen/GI: Negative for abdominal pain, nausea, vomiting, diarrhea, and constipation, Back: Negative for injury and pain, MS/Extremity: Negative for injury and deformity, Skin: Negative for injury, rash, and discoloration, Neuro: Negative for headache, weakness, numbness, tingling, and seizure, Psych: Negative for depression, anxiety, suicide ideation, homicidal ideation, and hallucinations, Allergy/Immunology: Negative for hives, rash, and allergies, Endocrine: Negative for neck swelling, polydipsia, polyuria, polyphagia, and marked weight changes. 09:50 All other systems are negative. Exam: 09:50 Constitutional: This is a well developed, well nourished patient who is awake, alert, sp3 and in no acute distress. Head/Face: Normocephalic, atraumatic. Eyes: Pupils equal round and reactive to light, extra-ocular motions intact. Lids and lashes normal. Conjunctiva and sclera are non-icteric and not injected. Cornea within normal limits. Periorbital areas with no swelling, redness, or edema. ENT: Nares patent. No nasal discharge, no septal abnormalities noted. External auditory canals are clear. Oropharynx with no redness, swelling, or masses, exudates, or evidence of obstruction, uvula midline. Mucous membranes moist. Neck: Trachea midline, no thyromegaly or masses palpated, and no cervical lymphadenopathy. Supple, full range of motion without nuchal rigidity, or vertebral point tenderness. No Meningismus. Chest/axilla: Normal chest wall appearance and motion. Nontender with no deformity. No lesions are appreciated. Respiratory: Lungs have equal breath sounds bilaterally, clear to auscultation and percussion. No rales, rhonchi or wheezes noted. No increased work of breathing, no retractions or nasal flaring. Abdomen/GI: Soft, non-tender, with normal bowel sounds. No distension or tympany. No guarding or rebound. No evidence of tenderness throughout. Back: No spinal tenderness. No costovertebral tenderness. Full range of motion. Skin: Warm, dry with normal turgor. Normal color with no rashes, no lesions, and no evidence of cellulitis. MS/ Extremity: Pulses equal, no cyanosis. Neurovascular intact. Full, normal range of motion. Neuro: Awake and alert, GCS 15, oriented to person, place, time, and situation. Cranial nerves II-XII grossly intact. Motor strength 5/5 in all extremities. Sensory grossly intact. Cerebellar exam normal. Normal gait. Psych: Awake, alert, with orientation to person, place and time. Behavior, mood, and affect are within normal limits. 09:51 Cardiovascular: Patient tachycardic in the 100-110 range otherwise negative cardiac sp3 exam. 10:05 ECG was reviewed by the Attending Physician. KG demonstrates normal sinus rhythm at 81 sp3 bpm with normal intervals, normal QRS, normal axis, normal ST/T-segment without evidence of ischemia. Vital Signs: 09:32 BP 127 / 78; Pulse 109; Resp 18; Temp 97.9; Pulse Ox 99% ; Weight 114.31 kg; Height 5 ap3 ft. 8 in. (172.72 cm); 10:30 BP 147 / 83; Pulse 90; Resp 21; Pulse Ox 98% ; bp 11:26 BP 136 / 88; Pulse 96; Resp 20; Pulse Ox 100% ; bp 12:01 BP 122 / 80; Pulse 81; Resp 16; Pulse Ox 98% ; bp 09:32 Body Mass Index 38.32 (114.31 kg, 172.72 cm) ap3 MDM: 09:41 Patient medically screened. sp3 09:51 Data reviewed: vital signs, nurses notes. ED course: 31-year-old female with chest sp3 pain. Will assess for ACS, pulmonary embolism, pleurisy, esophageal reflux. Labs, EKG, CT chest pending. Likely discharge home if symptoms resolved. Heart rate is already in the 90-95 range just with rest. Patient in no acute distress and not suspecting any critical findings at this time.. 11:50 ED course: All results are back and demonstrate no acute abnormality or critical sp3 findings. Will discharge patient home at this time with reassurance and a prescription for diclofenac for pleuritic chest pain.. 12/14 09:49 Order name: Basic Metabolic Panel sp3 12/14 09:49 Order name: CBC with Diff; Complete Time: 10:32 sp3 12/14 09:49 Order name: LFT's sp3 12/14 09:49 Order name: Magnesium 3 12/14 09:49 Order name: PT-INR; Complete Time: 10:32 sp3 12/14 09:49 Order name: Troponin HS sp3 12/14 09:49 Order name: EKG; Complete Time: 09:49 sp3 12/14 09:49 Order name: Cardiac monitoring; Complete Time: 10:03 sp3 12/14 09:49 Order name: EKG - Nurse/Tech; Complete Time: 10:07 sp3 12/14 09:49 Order name: IV Saline Lock; Complete Time: 10: sp3 12/14 09:49 Order name: Labs collected and sent; Complete Time: : sp3 12/14 09:49 Order name: CT Chest For PE Angio; Complete Time: 11:50 sp3 12/14 10:41 Order name: Urine Dipstick-Ancillary EDMS 12/14 10:43 Order name: Urine --Ancillary (enter results) em1 12/14 09:49 Order name: O2 Sat Monitoring; Complete Time: 10: sp3 Administered Medications: No medications were administered Disposition Summary: 12/14/21 11:51 Discharge Ordered Location: Home sp3 Condition: Stable sp3 Diagnosis - Pleurisy, chest pain sp3 Followup: sp3 - With: Private Physician - When: - Reason: Re-evaluation by your physician Discharge Instructions: - Discharge Summary Sheet sp3 - Pleurisy sp3 Forms: - Medication Reconciliation Form sp3 - Thank You Letter sp3 - Antibiotic Education sp3 - Prescription Opioid Use sp3 Prescriptions: - Diclofenac Sodium 75 mg Oral Tablet Sustained Release - take 1 tablet by ORAL route 2 times per day; 30 tablet; Refills: 0, Product sp3 Selection Permitted Signatures: Dispatcher [employer] Neema Bronson RN RN ap3 Juanita Goetz MD MD sp3
[2021-12-14 12:07] VITALS: TEMP 97.9
[2021-12-14 12:09] VITALS: BP 136/88; O2SAT 100
[2021-12-14 18:26] LABS: Magnesium 1.8
== END 2021-12-14 12:01 | disposition home or self-care (01) ==
LOC: ER 09:21
DX: R09.1 Pleurisy (principal)
CPT/HCPCS: 93005; 85025; 80048; 36415; 83735; 81025; 85610; 80076; 81003; 84484; 71275; 99284; Q9967

== ENCOUNTER 2023-04-09 00:57 | Emergency (ER) | payer BC ==
--- OUTSIDE RECORDS SUMMARY | 2023-04-09 01:00 | XMS REPORT | Continuity of Care Document ---
:1990 Author Organization [facility] t Address [address] [facility] [place] [address] [place] [address] Care Team Providers Name Role Phone GC_CCOB_Khan_M Attending Clinician Unavailable GC_CCOB_Khan_M Admitting Clinician Unavailable Payers Payer Name Policy Type Policy Number Effective Date Expiration Date S [place] [id number] 2019 00:00:00 Problems This patient has no known problems. Allergies, Adverse Reactions, Alerts This patient has no known allergies or adverse reactions. Medications This patient has no known medications. Vital Signs Vital Name Observation Time Observation Value Comments Source Temperature Oral (F) 2017-08-23 17:15:00 98.6 F [facility] Diastolic (mm Hg) 2017-08-23 17:15:00 [facility] Systolic (mm Hg) 2017-08-23 17:15:00 Amrik reji Banda Procedures This patient has no known procedures. Encounters Start End Encounter Admission Attending Care Care Encounter Source Date/Time Date/Time Type Type Clinicians Facility Department ID 2023-04-09 Outpatient [id number] [facility] 00:59:55 [id number] 2022-03-05 2022-03-05 Outpatient GC_CCOB_Kha PRIV PRIV [id number] [facility] 00:00:00 00:00:00 n_M [id number] Med[facility] l 2017-08-23 2017-08-23 Outpatient [facility] [id number] [facility] 11:15:00 11:15:00 Praveena Larose MD Results This patient has no known results.
[2023-04-09 02:01] LABS: Absolute Lymphocytes (CBC) 3.3 K/uL (0.7-4.9); Hematocrit 37.9 % (36.0-45.0); MCV 90.1 fL (80-100); MPV 8.9 fL (7.6-11.3); RBC Red Blood Cell Count 4.21 M/uL (3.86-4.86)
[2023-04-09 02:08] LABS: Potassium 3.9 mEq/L (3.5-5.1); Troponin High Sensitivity 4.1 pg/mL (<58.9)
--- NOTE | 2023-04-09 03:40 | EDPHYS ---
Physician Documentation [facility] Name: Elizabeth Blackwell Age: 32 yrs Sex: Female : 1990 Arrival Date: 04/09/2023 Time: 00:57 Bed 8 Private MD: ED Physician Neftali Celis HPI: 04/09 01:18 This 32 yrs old Female presents to ER via Ambulatory with complaints of Chest Pain. kb 01:18 The patient or guardian reports chest pain that is located primarily in the chest kb diffusely. The pain does not radiate. Associated signs and symptoms: Pertinent positives: nausea, shortness of breath, vomiting. The chest pain is described as aching. Duration: The patient or guardian reports a single episode, that is still ongoing. Modifying factors: The symptoms are alleviated by nothing. the symptoms are aggravated by nothing. Severity of pain: At its worst the pain was mild moderate in the emergency department the pain is unchanged. The patient has not experienced similar symptoms in the past. The patient has not recently seen a physician. Pt reports chest pain with shortness of breath that started just after doing some cocaine. States she has not done cocaine in a long time and has never had this kind of reaction so she got worried that something was wrong. States she took a hot shower to try to feel better and it caused her to vomit. . 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 - Social history:: Smoking status: Patient denies any tobacco usage or history of. ROS: 01:18 Constitutional: Negative for fever, chills, and weight loss. kb 01:18 Cardiovascular: Positive for chest pain. 01:18 Respiratory: Positive for shortness of breath. 01:18 Abdomen/GI: Positive for nausea and vomiting. 01:18 All other systems are negative. Exam: 01:18 Constitutional: This is a well developed, well nourished patient who is awake, alert, kb and in no acute distress. Head/Face: Normocephalic, atraumatic. ENT: Moist Mucous membranes Cardiovascular: Regular rate and rhythm with a normal S1 and S2. No gallops, murmurs, or rubs. No pulse deficits. Respiratory: Respirations even and unlabored. No increased work of breathing. Talking in full sentences Abdomen/GI: Soft, non-tender. No distention Skin: Warm, dry with normal turgor. Normal color. MS/ Extremity: Pulses equal, no cyanosis. Neurovascular intact. Full, normal range of motion. Neuro: Awake and alert, GCS 15, oriented to person, place, time, and situation. Moves all extremities. Normal gait. 01:18 Constitutional: The patient appears anxious. 01:28 ECG was reviewed by the Attending Physician. Vital Signs: 01:04 BP 133 / 98; Pulse 72; Resp 20 S; Temp 97.9(TE); Pulse Ox 100% on R/A; Weight 113.4 kg as6 (R); Height 5 ft. 8 in. (R); Pain 8/10; 01:47 BP 129 / 84; Pulse 53; Resp 16; Pulse Ox 100% on R/A; rv 03:12 BP 122 / 76; Pulse 58; Resp 17; Pulse Ox 100% on R/A; rv 01:04 Body Mass Index 38.01 (113.40 kg, 172.72 cm) as6 01:04 Pain Scale: Adult as6 [place] Coma Score: 03:13 Eye Response: spontaneous(4). Motor Response: obeys commands(6). Verbal Response: rv oriented(5). Total: 15. 04:06 Eye Response: spontaneous(4). Motor Response: obeys commands(6). Verbal Response: rv oriented(5). Total: 15. MDM: 01:02 Patient medically screened. kb 01:18 Data reviewed: vital signs, nurses notes. kb 01:21 Differential diagnosis: abnormal EKG, acute myocardial infarction, anxiety, coronary kb artery disease cocaine abuse. 01:58 Transition of care: After a detail discussion of the patient's case, care is kb transferred to Neftali Celis MD. 03:37 HEART Score: History: Slightly Suspicious (0), ECG: Normal (0), Age: < or = 45 years sp4 (0), Risk Factors: No Risk Factors Known (0), Troponin: < or = 1 x Normal Limit (0), Total Score = 0. Data reviewed: lab test result(s), cardiac enzymes, CBC, electrolytes, EKG, radiologic studies, plain films. ED course: EKG today reveals sinus bradycardia but is otherwise normal.. Chest x-ray reveals no acute cardiopulmonary disease, labs are unremarkable. Mild elevation of white count possibly stress response secondary to cocaine use. . ED course: Patient is stable for discharge home with recommendation to discontinue use of cocaine.. 04/09 01:06 Order name: Basic Metabolic Panel; Complete Time: 03:27 kb 04/09 01:06 Order name: CBC with Diff; Complete Time: 03:27 kb 04/09 01:06 Order name: Troponin HS; Complete Time: 03:27 kb 04/09 01:06 Order name: XRAY Chest (1 view) kb 04/09 01:06 Order name: EKG; Complete Time: 01:07 kb 04/09 01:06 Order name: Cardiac monitoring; Complete Time: 01:33 kb 04/09 01:06 Order name: EKG - Nurse/Tech; Complete Time: 01:33 kb 04/09 01:06 Order name: IV Saline Lock; Complete Time: 01:33 kb 04/09 01:06 Order name: Labs collected and sent; Complete Time: 01:33 kb 04/09 01:06 Order name: O2 Per Protocol; Complete Time: 01:33 kb 04/09 01:06 Order name: O2 Sat Monitoring; Complete Time: 01:33 kb EC:28 Rate is 56 beats/min. Rhythm is regular. QRS [place] is Normal. NM interval is normal at kb 136 msec. QRS interval is normal at 100 msec. QT interval is normal at 397 msec. Administered Medications: No medications were administered Disposition: 03:42 Co-signature as Attending Physician, Neftali Celis MD I agree with the assessment sp4 and plan of care. I reviewed the patient's care provided by Advanced Practice Provider \T\ agree w/ the diagnosis \T\ care plan. I personally saw the pt \T\ performed a substantive portion of the visit, incldng all aspects of the (History/Exam/Medical Decision Making). Disposition Summary: 04/09/23 03:39 Discharge Ordered Location: Home sp4 Problem: new sp4 Symptoms: have improved sp4 Condition: Stable sp4 Diagnosis - Chest pain, unspecified sp4 - Chest pain in response to stimulant use, acute use of cocaine, acute anxiety attack sp4 Followup: sp4 - With: Private Physician - When: As needed - Reason: Recheck today's complaints Discharge Instructions: - Discharge Summary Sheet sp4 - Nonspecific Chest Pain, Adult, [id number] sp4 Signatures: Dispatcher [employer] EDMS Mircale Marquez, JACQUELYNC SALES AGENT [employer]-Sami Titus RN RN rv Cresencio Almonte RN RN as6 Neftali Celis MD MD sp4 Corrections: (The following items were deleted from the chart) 01:48 01:47 PMHx: UTI; rv rv
--- NOTE | 2023-04-09 03:40 | ER ---
Nurse's Notes [facility] Name: Elizabeth Blackwell Age: 32 yrs Sex: Female : 1990 Arrival Date: 04/09/2023 Time: 00:57 Bed 8 Private MD: Diagnosis: Chest pain, unspecified;Chest pain in response to stimulant use, acute use of cocaine, acute anxiety attack Presentation: 04/09 01:04 Chief complaint: Patient states: chest pain that started around 2100 yesterday and has as6 increasingly gotten worse, also c/o SOB. pt admits to using cocaine around 1999 yesterday. Coronavirus screen: At this time, the client does not indicate any symptoms associated with coronavirus-19. Ebola Screen: No symptoms or risks identified at this time. Initial Sepsis Screen: Does the patient meet any 2 criteria? No. Patient's initial sepsis screen is negative. Does the patient have a suspected source of infection? No. Patient's initial sepsis screen is negative. Risk Assessment: Do you want to hurt yourself or someone else? Patient reports no desire to harm self or others. Onset of symptoms was April 08, 2023. 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 - Social history:: Smoking status: Patient denies any tobacco usage or history of. Screenin:46 [facility] ED Fall Risk Assessment (Adult) History of falling in the last 3 months, rv including since admission No falls in past 3 months (0 pts) Confusion or Disorientation No (0 pts) Intoxicated or Sedated No (0 pts) Impaired Gait No (0 pts) Mobility Assist Device Used No (0 pt) Altered Elimination No (0 pt) Score/Fall Risk Level 0 - 2 = Low Risk Oriented to surroundings, Maintained a safe environment, Educated pt \T\ family on fall prevention, incl call for assistance when getting out of bed, Assessed \T\ reinforced patient's understanding of fall precautions, Provided non-skid footwear, Hourly rounding (assess needs \T\ fall precautionary measures) done, Used ambulatory aids as needed (educated on \T\ assisted with), Used gait belt as appropriate. Abuse screen: Denies threats or abuse. Denies injuries from another. Nutritional screening: No deficits noted. Tuberculosis screening: No symptoms or risk factors identified. Assessment: 01:00 General: Appears uncomfortable, Behavior is calm, cooperative. rv 01:00 Pain: Complains of pain in diaphragm Pain does not radiate. Pain began suddenly. Neuro: rv Level of Consciousness is awake, alert, obeys commands, Oriented to person, place, time, situation. Cardiovascular: Capillary refill < 3 seconds Rhythm is sinus rhythm. Respiratory: Airway is patent Respiratory effort is even, unlabored, Breath sounds are clear bilaterally. GI: No signs and/or symptoms were reported involving the gastrointestinal system. : No signs and/or symptoms were reported regarding the genitourinary system. Vital Signs: 01:04 BP 133 / 98; Pulse 72; Resp 20 S; Temp 97.9(TE); Pulse Ox 100% on R/A; Weight 113.4 kg as6 (R); Height 5 ft. 8 in. (R); Pain 8/10; 01:47 BP 129 / 84; Pulse 53; Resp 16; Pulse Ox 100% on R/A; rv 03:12 BP 122 / 76; Pulse 58; Resp 17; Pulse Ox 100% on R/A; rv 01:04 Body Mass Index 38.01 (113.40 kg, 172.72 cm) as6 01:04 Pain Scale: Adult as6 [place] Coma Score: 03:13 Eye Response: spontaneous(4). Motor Response: obeys commands(6). Verbal Response: rv oriented(5). Total: 15. 04:06 Eye Response: spontaneous(4). Motor Response: obeys commands(6). Verbal Response: rv oriented(5). Total: 15. ED Course: 00:58 Patient arrived in ED. ag3 01:06 Miracle Marquez FNP-C [facility]. kb 01:06 Neftali Celis MD is Attending Physician. kb 01:07 Triage completed. as6 01:08 Arm band placed on. as6 01:15 Sami Mane RN is Primary Nurse. rv 01:23 XRAY Chest (1 view) In Process Unspecified. EDMS 01:33 Inserted saline lock: 20 gauge in right antecubital area, using aseptic technique. rv Blood collected. 01:48 Patient has correct armband on for positive identification. Placed in gown. Bed in low rv position. Call light in reach. Side rails up X 1. Client placed on continuous cardiac and pulse oximetry monitoring. NIBP monitoring applied. monitor technician on. 01:48 No provider procedures requiring assistance completed. Patient maintains SpO2 rv saturation greater than 95% on room air. 04:06 IV discontinued, intact, bleeding controlled, No redness/swelling at site. Pressure rv dressing applied. Administered Medications: No medications were administered Medication: 01:48 VIS not applicable for this client. rv Outcome: 03:39 Discharge ordered by sp4 04:06 Discharged to home ambulatory. rv 04:06 Condition: good 04:06 Discharge instructions given to patient, Instructed on discharge instructions, follow up and referral plans. Demonstrated understanding of instructions, follow-up care. 04:06 Patient left the ED. rv Signatures: Dispatcher [employer] EDMT Miracle Marquez FNP-C FINANCIAL OPERATIONS CONSULTANT-Ckb Sami Mane RN LINN rv Vanesa Dennis 3 Cresencio Almonte RN RN as6 Neftali Celis MD MD sp4 Corrections: (The following items were deleted from the chart) 01:48 01:47 PMHx: UTI; rv rv
[2023-04-09 05:00] VITALS: TEMP 97.9; O2SAT 100
[2023-04-09 05:04] VITALS: BP 122/76
--- NOTE | 2023-04-09 15:16 | RAD REPORT ---
EXAM DESCRIPTION: RAD - Chest Single View - 04/09/2023 1:20 am CLINICAL HISTORY: 32 years, Female, CHEST PAIN COMPARISON: None. FINDINGS: Single view of the chest was obtained portable. No prior films are available for compariso n. The cardiomediastinal silhouette demonstrate to be unremarkable. The heart is not enlarged. The th oracic aorta is unremarkable. The pulmonary vasculature is normal distribution. Costophrenic angles a re sharp. No areas of consolidation or masses are seen. The rest of the soft tissue and bony stru ctures demonstrate to be unremarkable. IMPRESSION: NO ACUTE CARDIOPULMONARY DISEASE SEEN. Electronically signed by: Mohan Salgado MD 04/09/2023 3:04 AM CDT Due to temporary technical issues with the PACS/Fluency reporting system, reports are being signed by the in house radiologists without review as a courtesy to insure prompt reporting. The interpreting radiologist is fully responsible for the content of the report.
--- NOTE | 2023-04-10 07:18 | EKG ---
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
== END 2023-04-09 04:06 | disposition home or self-care (01) ==
LOC: ER 00:57
DX: F14.980 Cocaine use, unspecified with cocaine-induced anxiety disorder (principal); F32.A Depression, unspecified
CPT/HCPCS: 36415; 71045; 80048; 84484; 85025; 93005; 99285